=== PATIENT | female | born 1985 | race Caucasian/White ===

== ENCOUNTER 2020-11-14 08:08 | Outpatient (REF) | payer BC, MEDICAID, SELFPAY | END 2020-11-14 08:09 | disposition home or self-care (01) | LOC: HO.LAB 08:08 | PROVIDERS: PCP Internal Medicine; Visit Provider Internal Medicine | DX: Z20.828 Contact with and (suspected) exposure to other viral communicable diseases (principal) | CPT/HCPCS: C9803; U0003 ==

== ENCOUNTER 2023-06-01 13:41 | Outpatient (REF) | payer OTHER, MEDICAID, SELFPAY ==
[2023-06-04 05:34] LABS: HPV mRNA E6/E7 rflx Not Detected (Not Detected)
== END 2023-06-01 13:42 | disposition home or self-care (01) ==
LOC: HO.LNP 13:41
PROVIDERS: PCP Internal Medicine; Visit Provider Obstetrics & Gynecology
DX: Z01.419 Encounter for gynecological examination (general) (routine) without abnormal findings (principal); Z11.51 Encounter for screening for human papillomavirus (HPV)
CPT/HCPCS: 87624; 88142

== ENCOUNTER 2023-06-03 10:25 | Outpatient (REF) | payer OTHER, MEDICAID, SELFPAY ==
--- NOTE | ~2023-06-03 | MM_ITS ---
EXAMINATION: MM SCREENING DIGITAL BREAST TOMOSYNTHESIS, BILATERAL CLINICAL INFORMATION: Screening. Asymptomatic. The lifetime risk of breast cancer based on the Tyrer-Cuzick Model is 22.3.%. COMPARISON: Mammography: Baseline mammography. TECHNIQUE: Digital breast tomosynthesis is performed in both the craniocaudal and mediolateral oblique views along with computer-aided detection (CAD). Synthesized 2D images are generated from the tomosynthesis. FINDINGS: There are scattered areas of fibroglandular density (ACR BI-RADS breast composition Category b). In the upper outer quadrant of the left breast, there is a subtle focal asymmetry which warrants additional mammographic imaging. Sonography may be performed at the discretion of the diagnostic radiologist. In the right breast, there are no significant masses, abnormal calcifications, or other abnormalities. MM/MM tomosynthesis screening BI IMPRESSION: Focal asymmetry of the left breast warrants additional mammographic imaging. Sonography may be performed at the discretion of the diagnostic radiologist. No mammographic signs of malignancy right breast. Given the patient's elevated breast cancer risk score of 22.3%, if MRI has not begun as an adjunct screening method for this patient, it is recommended. ASSESSMENT: BI-RADS BI-RADS 0 - Incomplete: Needs additional Imaging. RECOMMENDATION: 1. Additional views of the left breast 2. Targeted ultrasound if warranted after review of the additional views. 3. Radiology department staff will contact the patient for additional imaging. Additional Imaging required This examination should not preclude the clinical evaluation of a suspicious palpable abnormality. This patient's information was entered into a reminder system with a target due date for their next mammogram.
== END 2023-06-03 10:26 | disposition home or self-care (01) ==
LOC: HO.MAMMO 10:25
PROVIDERS: PCP Internal Medicine; Visit Provider Obstetrics & Gynecology
DX: Z12.31 Encounter for screening mammogram for malignant neoplasm of breast (principal)
CPT/HCPCS: 77063; 77067

== ENCOUNTER → 2023-06-03 10:30 | Outpatient (BNV) | payer OTHER, MEDICAID, SELFPAY | PROVIDERS: PCP Internal Medicine; Visit Provider Radiology Diagnostic Radiology | DX: Z12.31 Encounter for screening mammogram for malignant neoplasm of breast (principal) | CPT/HCPCS: 77063; 77067 ==

== ENCOUNTER 2023-07-15 15:00 | Outpatient (REF) | payer OTHER, MEDICAID, SELFPAY ==
--- NOTE | ~2023-07-15 | US_ITS ---
EXAMINATION: MM DIAGNOSTIC DIGITAL BREAST TOMOSYNTHESIS, LEFT US BREAST LIMITED, LEFT MAMMOGRAPHY: CLINICAL INFORMATION: Follow-up possible area of architectural distortion upper slightly outer left breast seen on screening examination dated 06/03/2023. The lifetime risk of breast cancer based on the Tyrer-Cuzick Model is 22.3%. COMPARISON: Mammography: Baseline mammography 06/03/2023. TECHNIQUE: Digital breast tomosynthesis is performed in both the craniocaudal and mediolateral oblique views along with computer-aided detection (CAD). Synthesized 2D images are generated from the tomosynthesis. FINDINGS: The breasts are heterogeneously dense, which may obscure small masses (ACR BI-RADS breast composition Category c). The suspected small focal asymmetry/subtle area of architectural distortion within the upper slightly outer left breast completely effaces on additional views, and is most consistent with summation artifact of normal overlapping dense fibroglandular tissue. There are no suspicious masses, suspicious grouped calcifications, or persistent areas of architectural distortion. Results were provided to the patient at time of the visit by the technologist. ULTRASOUND: CLINICAL INFORMATION: Evaluate focal asymmetry upper slightly outer left breast, middle one third. COMPARISON: No prior ultrasound. TECHNIQUE: Targeted sonographic evaluation was performed using a high frequency linear transducer. Selected archived documentation. FINDINGS: LEFT BREAST: No suspicious mass is seen. There are no skin changes. There is no pathologic acoustic shadowing. There is no cystic abnormality. Only normal heterogeneously dense fibroglandular tissue is identified. No sonographic correlate. US/US breast LT limited mamm only IMPRESSION: There are no mammographic or sonographic findings suspicious for malignancy. Recommend the patient resume routine annual screening mammography to include both breasts. OVERALL ASSESSMENT: Mammography: BI-RADS 1 - Negative Ultrasound: BI-RADS 1 - Negative RECOMMENDATION: 1 year F/U This patient's information was entered into a reminder system with a target due date for their next mammogram.
== END 2023-07-15 15:01 | disposition home or self-care (01) ==
LOC: HO.MAMMO 15:00
PROVIDERS: PCP Internal Medicine; Visit Provider Internal Medicine
DX: N64.89 Other specified disorders of breast (principal)
CPT/HCPCS: 76642; 77061; 77065

== ENCOUNTER → 2023-07-15 15:00 | Outpatient (BNV) | payer OTHER, MEDICAID, SELFPAY | PROVIDERS: PCP Internal Medicine; Visit Provider Radiology Diagnostic Radiology | DX: R92.2 Inconclusive mammogram (principal) | CPT/HCPCS: 76642; 77061; 77065 ==

== ENCOUNTER 2023-10-07 11:26 | Outpatient (AMB) | payer BC, SELFPAY ==
[2023-10-07 11:27] VITALS: BP 116/74; PULSE 95; O2SAT 99; BMI 25.0
--- NOTE | 2023-10-07 11:27 | MHC.PC.OV ---
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 Home Assessments Required: No Accompanied by: Self / Same As Patient Allergies No Known Allergies Allergy (Verified 10/07/23 11:44) Medication List - Last Reconciled 10/07/23 by Elisa Rhodes MD [id number]-aakulfju 250-250-65 mg (Excedrin Migraine) 1 tab PO Q4-6H PRN Tobacco use date assessed: 10/07/23 Dental Screening Dental Screen Date: 10/07/23 Did you have a dental visit in the last 12 months?: No Did you have a dental problem in the last 6 months where you did not have access to dental care?: No Was dental information given to patient?: Patient has dentist HPI Annual appointment HPI Details 38-year-old female with history of iron deficiency anemia coming in for physical exam. passed out 2 years ago- not eating occ dizzy, pulsating on ear. occ sob. - not go to bathroom QD, states once Q other week PFS Medical History Annual physical exam Surgical History History of carpal tunnel release History of tubal ligation Neck pain with history of cervical spinal surgery History of section Family History Father No problems noted. 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 1. Little interest or pleasure in doing things: not at all 2. Feeling down, depressed, or hopeless: not at all 3. Trouble falling or staying asleep, or sleeping too much: not at all 4. Feeling tired or having little energy: not at all 5. Poor appetite or overeating: not at all 6. Feeling bad about yourself - or that you are a failure or have let yourself or your family down: not at all 7. Trouble concentrating on things, such as reading the newspaper or watching television: not at all 8. Moving or speaking so slowly that other people could have noticed. Or the opposite - being so fidgety or restless that you have been moving around a lot more than usual: not at all 9. Thoughts that you would be better off or of hurting yourself in some way: not at all Total score: 0 Depression Screening Interpretation: Negative Depression Screening Done: Yes 54652 - PHQ-9 Billing: Yes Source: Developed by Drs. Parker Schmitz, Ashleigh Villalta, Micahel House and colleagues, with an educational ismael from [employer]. Thrive Questionnaire I am a: Patient What is your living situation today?: I have a steady place to live Within the past 12 months, did the food you bought not last and you didn't have the money to get more?: Never true Within the past 12 months, did you worry whether your food would run out before you got money to buy more?: Never true Do you have trouble paying for medicines?: No Do you have trouble getting transportation to medical appointments?: No Do you have trouble paying your heating and electricity bill?: No Do you have trouble taking care of your child, family member or friend?: No Do you have trouble with day-to-day activities such as bathing, preparing meals, shopping, managing finances, etc.?: No Are you currently unemployed and looking for a job?: No Are you interested in more education?: No Please select the resources that you would like help with: None Currently or been in a relationship where the following occur: no concerns reported AUDIT C Alcohol Use Questionnaire (AUDIT-C) 1. How often do you have a drink containing alcohol?: Never 3. How often do you have six or more drinks on one occasion?: Never Total Score: 0 SUKHDEV-7 AMB Questionnaire SUKHDEV-7 Date SUKHDEV - 7 assessed: 10/07/23 Feeling nervous, anxious, or on edge: 0 = Not at all Not being able to stop or control worryin = Not at all Worrying too much about different things: 0 = Not at all Trouble relaxin = Not at all Being so restless that it is hard to sit still: 0 = Not at all Becoming easily annoyed or irritable: 0 = Not at all Feeling afraid as if something awful might happen: 0 = Not at all Total SUKHDEV-7 score (0-4 normal; 5-9 mild; 10-14 moderate; 15-21 severe): 0 Source: Developed by Drs. Parker Schmitz, Ashleigh Villalta, Michael House and colleagues, with an educational ismael from [employer]. SUKHDEV-7 Assessment Billing SUKHDEV-7 Assessment Tool: SUKHDEV-7 Assessment 54149 Review of Systems Const Denies poor appetite and Denies weakness Eyes Denies no additional complaints ENT Reports Normal hearing present, Denies dizziness, Denies nasal congestion, Denies tinnitus and Denies sore throat Card Denies chest pain, Denies syncope, Denies rapid heart rate and Denies dyspnea Resp Denies cough and Denies dyspnea GI Denies change in stool character, Reports constipation, Denies diarrhea, Denies nausea and Denies vomiting Denies urinary frequency, Denies difficulty voiding and Denies dysuria Neuro Reports Normal hearing present, Denies confusion, Denies dizziness, Denies syncope and Denies weakness Psych Denies confusion Physical exam (Primary Care) Vital Signs: Last Vital Signs Pulse 95 10/07/23 11:27 BP 116/74 10/07/23 11:27 Pulse Ox 99 10/07/23 11:27 Oxygen Delivery Method Room Air 10/07/23 11:27 BMI result Body Mass Index 25.0 Tobacco/Smoking Status: Tobacco use Status Tobacco use date assessed 10/07/23 10/07/23 11:49 Patient Tobacco Use Status Never used Tobacco 10/07/23 12:02 e-Cigarette/Vaping Use Never Used 10/07/23 12:02 PHQ-9: PHQ-9 Score PHQ-9: Total score 0 10/07/23 11:58 Depression Screening Interpretation: Negative Currently or been in a relationship where the following occur: no concerns reported Const Other: pale palpebral conjuctive General: No confusion Orientation/consciousness: No confusion HENMT Head: Yes normocephalic Ears: external ears normal and TM's normal bilaterally Face and sinus: Yes normal facial exam Mouth: moist mucous membranes Throat: Yes tonsils normal Eyes Conjunctivae: conjunctivae normal Pupils: Equal, round and reactive pupils present and Pupil accommodation reflex normal Direct Ophthalmoscopy: normal light reflex Neck Neck: No lymphadenopathy Thyroid: Thyroid normal Chest Chest palpation & inspection: normal inspection of the chest Resp Effort & Inspection: normal respiratory effort and no audible wheezes Auscultation: clear to auscultation bilaterally, no crackles, no wheezes and lung sounds not diminished Cardio Rate: regular rate Rhythm: regular rhythm Peripheral pulses: radial pulses present and dorsalis pedis present GI Palpation (GI): no masses Auscultation: normal bowel sounds and normoactive bowel sounds Rectal Exam - Female: deferred Back/Spine/Pelvis Back/spine/pelvis image: 1. 3 cm mass noted - black head Skin General skin exam: no rashes or lesions noted Rashes: no rashes Neuro General: No confusion Cranial nerves: Yes Equal, round and reactive pupils present and Yes Normal hearing present Cognition (Neuro): normal cognition Gait exam (Neuro): Normal gait present Motor exam (neuro): 5/5 motor strength present throughout Deep tendon reflexes (DTR's): Right brachioradialis reflex intensity grade: 2+, Left brachioradialis reflex intensity grade: 2+, Right patellar reflex intensity grade: 2+ and Left patellar reflex intensity grade: 2+ Extrem General: No edema Office Procedures Flu Questionnaire Does the patient have a severe egg allergy?: No Does the patient have severe life threatening allergies?: No Does the patient have a fever or illness today?: No Has the patient ever had Guillain-[place] Syndrome?: No Has the patient ever had any past reaction to a flu shot?: No Immunizations flu vacc [id number] 6mos up(PF) 60 mcg(15 mcgx4)/0.5 mL IM syringe Performing Provider: Elisa Rhodes MD 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 0.5 mL IM Left Deltoid 0.5 mL [id number] 05/27/24 [id number] VIS Given Date VIS Provided VIS Publication Date 10/07/23 Single Vaccine 21 Eligibility Eligibility Date Funding Source Not [facility] Eligible 10/07/23 Private Assessment and Plan Assessment & Plan (1) Annual physical exam: Code(s): Z00.00 - Encounter for general adult medical examination without abnormal findings (2) Iron deficiency anemia: Code(s): D50.9 - Iron deficiency anemia, unspecified (3) Open comedone: Code(s): L70.0 - Acne vulgaris Orders: Orders Influenza [id number] Immunization Today Z23 - Encounter for immunization Comprehensive Met. Panel Today D50.9 - Iron deficiency anemia, unspecified Ferritin Today D50.9 - Iron deficiency anemia, unspecified IRON PROFILE Today D50.9 - Iron deficiency anemia, unspecified Vitamin D 25-OH Total Today D50.9 - Iron deficiency anemia, unspecified Lipid Panel Today D50.9 - Iron deficiency anemia, unspecified, E78.00 - Pure hypercholesterolemia, unspecified Reticulocyte Count Today D50.9 - Iron deficiency anemia, unspecified Complete Blood Count Auto Diff Today D50.9 - Iron deficiency anemia, unspecified Thyroid Stimulating Hormone Today D50.9 - Iron deficiency anemia, unspecified Vitamin B12 and Folate Today D50.9 - Iron deficiency anemia, unspecified Free T4 (Free Thyroxine) Today D50.9 - Iron deficiency anemia, unspecified Referrals General Surgery Referral L70.0 - Acne vulgaris Coding Level of Care Code Est Pt Prev Care 40-64y(09216) Diagnoses Annual physical exam Z00.00 Iron deficiency anemia D50.9 Open comedone L70.0 Additional Codes SUKHDEV-7 Assessment Billing - SUKHDEV-7 Assessment Tool: SUKHDEV-7 Assessment 54520 ([id number])
== END 2023-10-07 12:22 | disposition home or self-care (01) ==
PROVIDERS: PCP Internal Medicine; Visit Provider Internal Medicine
DX: Z00.00 Encounter for general adult medical examination without abnormal findings (principal); D50.9 Iron deficiency anemia, unspecified; L70.0 Acne vulgaris; Z23 Encounter for immunization
CPT/HCPCS: 90471; 90686; 99396

== ENCOUNTER 2023-10-08 08:10 | Outpatient (REF) | payer BC, MEDICAID, SELFPAY ==
[2023-10-08 08:58] LABS: Eosinophils Absolute Auto 0.1 X10*3/uL (0.0-0.4); Eosinophils Percent Auto 1.5 % (0-4); Imm Gran Abs Auto 0.01 X10*3/uL (0.00-0.03); Imm Gran Pct Auto 0.2 % (0.0-0.4); Immature Retic Fraction 14.5 % (3.0-15.9); Lymphocytes Absolute Auto 0.8 X10*3/uL (1.2-4.9); Lymphocytes Percent Auto 19.8 % (20-40); MANUAL DIFF FLAG SCAN; Mean Corpuscular HGB Conc 24.4 g/dl (31.0-35.0); Mean Corpuscular Hemoglobin 15.2 pg (27.0-33.0); Mean Platelet Volume 9.9 fL (9.4-12.3); Monocytes Absolute Auto 0.4 X10*3/uL (0.1-1.2); Monocytes Percent Auto 10.4 % (2-11); Neutrophils Absolute Auto 2.8 x10*3/uL (2.0-8.3); Neutrophils Percent Auto 68.1 % (45-73); Platelet Count 205 X10*3/uL (160-400); Red Blood Count 2.89 X10*6/uL (4.20-5.50); Red Cell Distribution Width 18.6 % (11.0-16.0); Retic HGB Equivalent 13.1 pg (30.0-35.0); Reticulocyte Percent 1.3 % (0.5-1.8); Reticulocytes Absolute 0.036 X10*6/uL (0.026-0.095); SCAN SMEAR FLAG 1; White Blood Count 4.1 X10*3/uL (4.8-10.8)
[2023-10-08 09:20] LABS: Alanine Aminotransferase < 5 U/L (0-31); Albumin Level 4.2 g/dL (3.5-5.0); Alkaline Phosphatase 59 U/L (39-117); Anion Gap 10 (12-20); Aspartate Amino Transferase 14 U/L (5-31); Bilirubin Total 0.6 mg/dL (0.0-1.0); Blood Urea Nitrogen 9 mg/dL (9-16); Calcium 9.3 mg/dL (8.4-10.2); Carbon Dioxide 23 mmol/L (22-29); Chloride 109 mmol/L (96-108); Cholesterol 113 mg/dL (<200); Estimated Glomerular Filt Rate > 60; Glucose Random 96 mg/dL (60-115); HDL Cholesterol 46 mg/dL (>40); Iron 11 mcg/dL (30-160); LDL Cholesterol Calculated 62 mg/dL (<100); Percent Iron Saturation 2 % (15-50); Sodium 138 mmol/L (135-145); Total Iron Binding Capacity 449 mcg/dL (228-428); Total Protein 7.5 g/dL (6.5-8.0); Triglycerides 27 mg/dL (<150); Unsaturated Iron Binding 438 ug/dL
[2023-10-08 09:42] LABS: Ferritin < 2 ng/mL (10-250); Free T4 (Free Thyroxine) 0.87 ng/dL (0.71-1.85); Thyroid Stimulating Hormone 0.23 uIU/mL (0.32-4.0); Vitamin D 25-OH Total 18.6 ng/mL (>30)
[2023-10-08 09:54] LABS: Hemoglobin 4.4 g/dl (12.0-16.0); Mean Corpuscular Volume 62.3 fL (80.0-98.0)
[2023-10-08 09:55] LABS: Folate 10.5 ng/mL (> or = 4.0); SLIDE REVIEW VERIFIED; Vitamin B12 288 pg/mL (200-900)
== END 2023-10-08 08:11 | disposition home or self-care (01) ==
LOC: HO.LAB 08:10
PROVIDERS: PCP Internal Medicine; Visit Provider Internal Medicine
DX: E78.00 Pure hypercholesterolemia, unspecified (principal); D50.9 Iron deficiency anemia, unspecified; E55.9 Vitamin D deficiency, unspecified
CPT/HCPCS: 36415; 80053; 80061; 82306; 82607; 82728; 82746; 83540; 84439; 84443; 85025; 85045

== ENCOUNTER 2023-10-08 11:16 | Observation (INO) | payer BC, OTHER, SELFPAY ==
[2023-10-08] VITALS (13 sets, daily range): BP systolic 97–113; BP diastolic 55–63; PULSE 80–112; RESP 14–18; TEMP 36.6–37.5; O2SAT 99–100; BMI 25.0
--- NOTE | 2023-10-08 11:37 | ED_ITS ---
HPI - General Adult General Chief complaint: Recheck/Abnormal Lab/Rx Stated complaint: low iron Time Seen by Provider: 10/08/23 11:53 Source: patient Mode of arrival: ambulatory Limitations: no limitations History of Present Illness HPI narrative: Patient is a 38 year old assigned female at with a history of anemia presenting to the emergency department today with intermittent dizziness and abnormal labs. Patient states that she was seen by her PCP yesterday for this intermittent dizziness upon position change and today he called her to inform her that her blood work had abnormalities. Patient states that she is not taking any iron supplements at this time. Patient denies any vaginal bleeding, vaginal discharge, abdominal pain, nausea, vomiting, fever, chills, blurry vision, double vision, loss of vision, chest pain, difficulty breathing, shortness of breath, back pain, night sweats, pain with urination, increased urinary frequency, increased urinary urgency, blood in her urine or stool, syncope or a near syncopal episode, recent trauma or falls, bowel incontinence, bladder incontinence, bowel retention, bladder retention, or any other complaints at this time. Onset (ago): day(s) Relieving factors: none Exacerbating factors: none Associated symptoms: denies other symptoms Treatments prior to arrival: none Related Data Home Medications Medication Instructions Recorded Confirmed pfvvenh-oeutonizwrevi-ffmknftl 250 2 tab PO DAILY PRN headache 10/07/23 10/08/23 mg-250 mg-65 mg tablet (Excedrin Migraine) Allergies Allergy/AdvReac Type Severity Reaction Status Date / Time No Known Allergies Allergy Verified 10/07/23 11:44 Review of Systems Constitutional: Constitutional: Reports no additional constitutional complaints, Denies chills, Denies fever(s) and Denies night sweats Eyes: Eyes: Reports no additional eye complaints, Denies blurry vision, Denies change in vision, Denies diplopia, Denies eye discharge, Denies loss of vision and Denies eye pain ENT: Reports dizziness (with position changes) Cardiovascular: Cardiovascular: Reports no additional cardiovascular complaints, Denies chest pain, Denies lightheadedness, Denies Loss of Consciousness and Denies dyspnea Respiratory: Respiratory: Reports no additional respiratory complaints and Denies dyspnea Gastrointestinal: Gastrointestinal: Reports no additional gastrointestinal complaints, Denies abdominal pain, Denies melena, Denies hematochezia, Denies change in bowel habits and Denies change in stool character Genitourinary: Genitourinary: Denies hematuria, Denies urinary frequency, Denies dysuria, Denies urinary incontinence, Denies urinary hesitancy and Denies urinary urgency Musculoskeletal: Musculoskeletal: Reports no additional musculoskeletal complaints, Denies numbness and Denies tingling Neurologic: Reports dizziness (with position changes), Denies loss of vision, Denies numbness and Denies tingling Psychiatric: Psychiatric: Reports no additional psychiatric complaints Endocrine: Endocrine: Reports no additional endocrine complaints Hematologic/Lymphatic: Hematologic/Lymphatic: Reports no additional hematologic/lymphatic complaints Allergic/Immunologic: Allergic/Immunologic: Reports no additional allergic/immunologic complaints [facility] Past Medical History Attestation statement: The following information was validated with the patient. Source: old records reviewed and nursing notes reviewed Medical History Annual physical exam Surgical History History of carpal tunnel release History of tubal ligation Neck pain with history of cervical spinal surgery History of section Family History Family History Father No problems noted. 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 Gender identity: Female Cognitive needs: No Hearing needs: No Vision needs: No Physical Exam ED Vital Signs: Vital Signs - 24 hr 10/08/23 11:36 10/08/23 12:10 10/08/23 12:10 Temperature 97.8 F Pulse Rate 98 99 94 Respiratory Rate 16 Blood Pressure 113/62 104/58 L 112/63 Pulse Oximetry 100 Oxygen Delivery Method Room Air 10/08/23 12:11 10/08/23 13:21 10/08/23 13:28 Temperature 99.1 F Pulse Rate 112 H 85 89 Respiratory Rate 18 15 Blood Pressure 111/59 L 103/61 103/58 L Pulse Oximetry 100 Oxygen Delivery Method Room Air BMI result Body Mass Index 25.0 Const General: cooperative, no acute distress, alert and awake Nutritional Appearance: well nourished Orientation/consciousness: patient oriented x3 Limitations: no limitations HENMT Head: Yes normal to inspection and Yes atraumatic Ears: hearing grossly normal bilaterally and external ears normal General nose exam: Normal external nose present, no nasal discharge noted and no epistaxis Face and sinus: Yes normal facial exam, No abrasion and No laceration Mouth: Normal oral and palatal mucosa present, no drooling and no muffled voice Eyes General: appearance normal, both eyes and all related structures Periorbital: periorbital findings normal Eyelids: Yes eyelids normal Conjunctivae: conjunctivae normal Pupils: Equal, round and reactive pupils present EOM: EOMs intact bilaterally Neck Neck: Yes normal visual inspection, Yes full ROM and Yes no lymphadenopathy Chest Chest palpation & inspection: normal inspection of the chest Resp Effort & Inspection: normal respiratory effort and able to speak in complete sentences Auscultation: clear to auscultation bilaterally Cardio Rate: tachycardic Rhythm: regular rhythm GI Inspection: Yes normal to inspection Neuro General: patient oriented x3 and moves all extremities Cranial nerves: Yes Equal, round and reactive pupils present Cognition (Neuro): normal cognition Motor exam (neuro): 5/5 motor strength present throughout Sensory Exam: Normal double simultaneous stimulation for sensation Coordination: [id number]-[id number] test normal Extrem General: Yes normal to inspection, Yes full ROM and Yes capillary refill normal Psych Appearance: grossly normal Mental Status: mental status grossly normal Affect: normal affect Attitude: cooperative Thought process: Normal thought process present Thought content: Normal thought content present Insight: Good insight present (Psych) Course Course Course Narrative: This is a rapid medical exam. Deferred additional HPI, ROS, PE to primary provider. 38 yo female with history of LAURI here with complaints of abnormal labs. Complaints of feeling dizzy. Not on FE supplements. HGB this AM 4.4-see chart. Will obtain T&S, UA, ur preg. VSS Medications Administered Discontinued Medications Generic Name Dose Route Start Last Admin Trade Name Freq PRN Reason Stop Dose Admin Sodium Chloride 100 mls @ 100 mls/hr 10/08/23 12:16 10/08/23 13:26 Ns IV 10/08/23 13:15 100 mls/hr ONCE ONE Administration Medical Decision Making Medical Decision Making [facility] Narrative: Patient is a 38 year old assigned female at with a history of anemia presenting to the emergency department today with abnormal labs and intermittent dizziness. Patient's physical exam was as noted in the physical exam portion of this note. Patient's blood work showed a hemoglobin of 4.4 and HCT of 18. Patient's urine showed no acute process. I spoke to the hospitalist team who agreed to admission. Patient agreed to transfusion of 2 units of PBRCs. I explained my physical exam findings as well as all test results to the patient and the patient's boyfriend. I answered all questions asked by the patient and the patient's boyfriend. Patient and the patient's boyfriend verbalized agreement and understanding with this treatment plan and admission. Differential Diagnosis Differential Diagnoses: The differential diagnosis associated with the presenta tion includes Anemia Admission/Observation Consideration of admission/observation: Escalation of care including admission/observation considered Patient admitted. Consult Healthcare Provider Management of the patient was discussed with: Hospitalist (agreed to admission as noted in the MDM Rationale portion of this note.) Lab Data [facility] Lab Attestation statement: I reviewed the patient's lab results. My interpretation of these results are in the MDM Rationale portion of this note. Labs: Lab Results 10/08/23 10/08/23 Range/Units 11:58 12:05 Urine Color Yellow Urine Appearance Clear Urine pH 6.5 (5.0-9.0) Ur Specific [place] 1.020 (1.005-1.025) Urine Protein Negative (Neg-Trace) mg/dL Urine Glucose (UA) Negative (Negative) mg/dL Urine Ketones Negative (Negative) mg/dL Urine Blood Negative (Negative) Urine Nitrite Negative (Negative) Ur Leukocyte Esterase Negative (Negative) Urine Test NEGATIVE (NEGATIVE) Blood Type O Positive Antibody Screen NEGATIVE Crossmatch See Detail Critical Care Time Critical Care Time Critical Care Time: Yes Total Critical Care Time: 45 Attestation: I spent 45 minutes of Critical Care Time with this patient. This does not include time spent on separately reported billable procedures. Discharge Plan Discharge Clinical Impression: Iron deficiency anemia Patient Disposition: Admitted As Inpatient
[2023-10-08 12:09] LABS: Appearance Urine Clear; Color Urine Yellow; Glucose Urine UA Negative (Negative); Leukocyte Esterase Urine Negative (Negative); Nitrite Urine Negative (Negative); PH 6.5 (5.0-9.0); Urine Blood Negative (Negative); Urine Ketones Negative (Negative); Urine Protein Negative (Neg-Trace)
[2023-10-08 12:12] LABS: UPreg QC Valid YES; Urine Pregnancy NEGATIVE (NEGATIVE)
--- NOTE | 2023-10-08 12:28 | PC.NURSE ---
pt ambulated in following a call back from her DR regarding critically low H&H. pt presents as A&O, pale, reports lethargy and dizziness upon changing positions, intermittent weakness. reports she has previously been informed that she is anemic. denies blood in her urine, stool and other sources of blood output. type and screen completed, 18G placed in pts LAC
--- NOTE | 2023-10-08 13:13 | PM.IMHP ---
History of Present Illness Date of Service: 10/08/23 Chief Complaint: anemia 38F PMH iron deficiency anemia not on supplement, grade 2 internal hemorrhoids presented with anemia. Patient has longstanding history of iron deficiency anemia with baseline hemoglobin around 7-9. Does not take oral iron supplement due to constipation. Generally feels fatigued, denies current worsening symptoms. Had regular outpatient labs which revealed hemoglobin of 4.4 so was sent to the hospital for transfusion. Patient denies any macroscopic bleeding in stool or urine, she denies heavy periods. Review of Systems Review of Systems: Yes all other systems are reviewed and are negative [facility] Medical History Annual physical exam Family History Father No problems noted. Mother Breast cancer Stomach cancer Depression Epilepsy Sister History of total hysterectomy Paternal Grandfather Liver cirrhosis Maternal Aunt Epilepsy Surgical History History of carpal tunnel release History of tubal ligation Neck pain with history of cervical spinal surgery History of section Social History Household Members: Children Housing: House Alcohol intake: current Patient Tobacco Use Status: Never used Tobacco Smoked in Last 30 Days: No e-Cigarette/Vaping Use: Never Used Use of substances other than those prescribed or required for medical reasons: No Advance Directives: No Advance Directives Information Provided: No Patient : No 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 occupational status: employed 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 Gender identity: Female Cognitive needs: No Hearing needs: No Vision needs: No Meds Allergies Allergy/AdvReac Type Severity Reaction Status Date / Time No Known Allergies Allergy Verified 10/07/23 11:44 Active Medications: Current Medications Sodium Chloride (Ns) 100 mls @ 100 mls/hr IV ONCE ONE Stop: 10/08/23 13:15 Sodium Chloride (Ns) 100 mls @ 100 mls/hr IV ONCE ONE Stop: 10/08/23 13:15 Home Medications Medication Instructions Recorded Confirmed Last Taken Type jdymhfa-zzdfhelkhmqfc-ecitbrkh 250 1 tab PO Q4-6H PRN 10/07/23 10/07/23 Unknown History mg-250 mg-65 mg tablet (Excedrin Migraine) Physical Exam Vital Signs and Narrative: Vital Signs: Last Vital Signs Temp 97.8 F 10/08/23 11:36 Pulse 112 H 10/08/23 12:11 Resp 16 10/08/23 11:36 BP 111/59 L 10/08/23 12:11 Pulse Ox 100 10/08/23 11:36 O2 Del Method Room Air 10/08/23 11:36 BMI result Body Mass Index 25.0 General: AO X 3, no acute distress, pallor Resp: CTA bilateral, no accessory muscles used CVS: S1,S2,RRR GI: soft, non tender, non distended Neuro: motor grossly intact, alert Psych: appropriate affect, appropriate insight Results Labs Labs: Laboratory Results - last 24 hr 10/08/23 10/08/23 11:58 12:05 Urine Color Yellow Urine Appearance Clear Urine pH 6.5 Ur Specific [place] 1.020 Urine Protein Negative Urine Glucose (UA) Negative Urine Ketones Negative Urine Blood Negative Urine Nitrite Negative Ur Leukocyte Esterase Negative Urine Test NEGATIVE Blood Type O Positive Antibody Screen NEGATIVE Crossmatch See Detail Assessment and Plan (1) Iron deficiency anemia: Status: Acute Plan 38F PMH iron deficiency anemia not on supplement, grade 2 internal hemorrhoids presented with anemia Chronic iron deficiency anemia - severe Transfuse 2 units PRBC and monitor for appropriate improvement Differential includes chronic blood loss from internal hemorrhoids versus malabsorption Does not tolerate p.o. iron, would recommend outpatient IV iron infusions Full code Quality Stroke Does the patient have a stroke diagnosis?: No VTE Prior VTE?: No VTE Risk Level:: Medical - low VTE Device Contraindication: Treatment Not Indicated VTE Drug Contraindication: Treatment Not Indicated
--- NOTE | 2023-10-08 13:30 | PHA.MEDREC ---
Pharmacy Consult ? Medication Reconciliation Pharmacy has completed the medication reconciliation. spoke with patient and she confirmed that she does not take any medications besides as needed Excedrin.
--- NOTE | 2023-10-08 13:31 | PC.NURSE ---
pt c/o DUNCAN lower leg cramping in calves. reports worse in R than in the L. reports DUNCAN legs are always swollen . no noted warmth, redness to area.
[2023-10-08] MEDS: Acetaminophen 325 MG TABLET 650 MG PO (19:45)
[2023-10-08] MEDS: 0.9 % Sodium Chloride Flush 3 ML SYRINGE IVFLUSH (19:46)
[2023-10-08] MEDS: Butalb/Acetamin/Caff 50/325/40 TABLET 1 TAB PO (21:29)
[2023-10-09] VITALS (8 sets, daily range): BP systolic 94–107; BP diastolic 53–60; PULSE 65–90; RESP 15–18; TEMP 36.3–37.2; O2SAT 98–100
[2023-10-09 05:45] LABS: PLT ABN DIST 1
[2023-10-09 05:46] LABS: Hematocrit 22.7 % (37.0-47.0); Mean Corpuscular HGB Conc 27.3 g/dl (31.0-35.0); Mean Corpuscular Hemoglobin 18.6 pg (27.0-33.0); Mean Corpuscular Volume 68.2 fL (80.0-98.0); Platelet Count 183 X10*3/uL (160-400); Red Blood Count 3.33 X10*6/uL (4.20-5.50); White Blood Count 4.5 X10*3/uL (4.8-10.8)
[2023-10-09 05:50] LABS: Hemoglobin 6.2 g/dl (12.0-16.0)
[2023-10-09 06:08] LABS: Anion Gap 11 (12-20); Blood Urea Nitrogen 9 mg/dL (9-16); Calcium 8.9 mg/dL (8.4-10.2); Carbon Dioxide 20 mmol/L (22-29); Chloride 110 mmol/L (96-108); Estimated Glomerular Filt Rate > 60; Glucose Fasting 90 mg/dL (60-99); Potassium 3.8 mmol/L (3.3-5.1); Sodium 137 mmol/L (135-145)
[2023-10-09] MEDS: 0.9 % Sodium Chloride Flush 3 ML SYRINGE IVFLUSH (08:26)
--- NOTE | 2023-10-09 09:24 | PM.DS ---
DS: Providers Provider Date of Service: 10/09/23 Date of admission: 10/08/23 13:32 Primary care physician: Elisa Rhodes MD DS: Diagnosis Discharge Diagnosis (1) Iron deficiency anemia: Status: Acute DS: Summary Hospital Course Hospital Course: from initial hpi: 38F PMH iron deficiency anemia not on supplement, grade 2 internal hemorrhoids presented with anemia. Patient has longstanding history of iron deficiency anemia with baseline hemoglobin around 7-9. Does not take oral iron supplement due to constipation. Generally feels fatigued, denies current worsening symptoms. Had regular outpatient labs which revealed hemoglobin of 4.4 so was sent to the hospital for transfusion. Patient denies any macroscopic bleeding in stool or urine, she denies heavy periods. hospital course: Patient was admitted for severe chronic iron deficiency anemia. She was transfused 3 units total PRBC. Hemoglobin improved appropriately. Patient's symptoms improved. Patient did not tolerate p.o. iron, therefore, should follow up outpatient to arrange routine iron infusions. She should also follow up with GI to continue workup for etiology, chronic blood loss versus malabsorption. Time Attestation Discharge coordination time: Greater than 30 minutes Quality: Safe Use of Opioids Does Pt have an Active Cancer Diagnosis on the Problem List?: No Quality: Stroke Does the patient have a stroke diagnosis?: No Physical Exam Vital Signs: Vital Signs: Last Vital Signs Temp 98.7 F 10/09/23 08:49 Pulse 77 10/09/23 08:49 Resp 18 10/09/23 08:49 BP 102/57 L 10/09/23 08:49 Pulse Ox 98 10/09/23 07:38 O2 Del Method Room Air 10/09/23 07:38 BMI result Body Mass Index 25.0 General: AO X 3, no acute distress Resp: CTA bilateral, no accessory muscles used CVS: S1,S2,RRR GI: soft, non tender, non distended Neuro: motor grossly intact, alert Psych: appropriate affect, appropriate insight DS: Data Data Completed and Pending Labs on day of discharge: Laboratory Results - last 24 hr 10/08/23 10/08/23 10/09/23 11:58 12:05 05:15 WBC 4.5 L RBC 3.33 L Hgb 6.2 L* D Hct 22.7 L D MCV 68.2 L D MCH 18.6 L MCHC 27.3 L RDW 24.0 H Plt Count 183 MPV 10.0 Absolute Nucleated RBC 0.000 Nucleated RBC % (auto) 0.0 Sodium 137 Potassium 3.8 Chloride 110 H Carbon Dioxide 20 L Anion Gap 11 L BUN 9 Creatinine 0.58 Estim Creat Clear Calc 116.0 Estimated GFR > 60 Fasting Glucose 90 Calcium 8.9 Urine Color Yellow Urine Appearance Clear Urine pH 6.5 Ur Specific [place] 1.020 Urine Protein Negative Urine Glucose (UA) Negative Urine Ketones Negative Urine Blood Negative Urine Nitrite Negative Ur Leukocyte Esterase Negative Urine Test NEGATIVE Blood Type O Positive Antibody Screen NEGATIVE Crossmatch See Detail Discharge Plan Discharge Anticipated Discharge Date/Time: 10/09/23 09:22 Patient Disposition: Home, Self-Care Discharge Diagnosis: iron deficiency anemia Referrals: Christi Pierce MD [Physician] - 1 Week (iron anemia) Po,Elisa Richardson MD [Primary Care Provider] - 1 Week Discharge Medications: Continued Excedrin Migraine 250-250-65 mg tablet 2 tab PO DAILY PRN (Reason: headache ) Discharge Orders: Discharge Order (Routine); Ordered 10/09/23 Ordered By: Lizandro Hawthorne Diet: Advance to usual diet Activity on Discharge: As tolerated Stand Alone Forms: Patient Portal Discharge page Care Plan Goals: manage anemia Health Concerns: iron deficiency anemia Plan of Treatment: arrange for routine iron infusions, follow up with gi for further work up of anemia, ?slow bleeding vs malabsorption Assessment: see above
--- NOTE | 2023-10-09 09:31 | MHC.CM.PN ---
MD order for home, self-care prior to CM interview. CM acknowledge.
[2023-10-09] MEDS: Butalb/Acetamin/Caff 50/325/40 TABLET 1 TAB PO (09:55)
[2023-10-09] MEDS: Acetaminophen 325 MG TABLET 650 MG PO (11:05)
== END 2023-10-09 12:40 | disposition home or self-care (01) ==
LOC: HO.ED 12:30 → HO.EDOVER 13:33 → HO.IMC 13:56
PROVIDERS: Nurse Practitioner Family; Admitting Provider Internal Medicine; Emergency Provider Emergency Medicine Emergency Medical Services; PCP Internal Medicine; Visit Provider Internal Medicine
DX: D50.9 Iron deficiency anemia, unspecified (principal); R42 Dizziness and giddiness; K64.1 Second degree hemorrhoids
CPT/HCPCS: 36415; 36430; 80048; 81003; 81025; 85027; 86850; 86900; 86901; 86923; 96360; 96361; 99222; 99285; P9016

== ENCOUNTER → 2023-10-08 12:29 | Outpatient (BNV) | payer BC, MEDICAID, SELFPAY | PROVIDERS: Emergency Provider Emergency Medicine Emergency Medical Services; PCP Internal Medicine; Visit Provider Internal Medicine | DX: D50.9 Iron deficiency anemia, unspecified (principal) | CPT/HCPCS: 99222; 99239 ==

== ENCOUNTER → 2023-10-10 11:41 | Outpatient (BNV) | payer BC, OTHER, SELFPAY | PROVIDERS: PCP Internal Medicine; Visit Provider Internal Medicine | DX: D50.9 Iron deficiency anemia, unspecified (principal) | CPT/HCPCS: 99204; 99213 ==

== ENCOUNTER 2023-10-18 14:43 | Outpatient (REF) | payer BC, OTHER, SELFPAY | END 2023-10-18 14:44 | disposition home or self-care (01) | LOC: HO.LNP 14:43 | PROVIDERS: PCP Internal Medicine; Visit Provider Surgery | DX: L70.0 Acne vulgaris (principal); L72.3 Sebaceous cyst | CPT/HCPCS: 11402; 88304 ==

== ENCOUNTER 2023-10-18 14:43 | Outpatient (AMB) | payer BC, SELFPAY ==
--- NOTE | 2023-10-18 14:50 | A.OFFVIS_ITS ---
Intake Vital Signs 10/18/23 14:53 Height 5 ft 3 in Weight 141 lb BMI 25.0 BP 116/58 L Blood Pressure Location Rt brachial Position Sitting Pulse 65 Intake Visit Reasons: Cyst/ Mid back Intake Note: Patient referred by PCP Dr. Rhodes for cyst on mid back. Has been present for yrs. Denies pain or discomfort. Cyst has been enlarging. Patient had friend try to pop it but never completely went away. 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 It is increasing in size, becoming more symptomatic. She was to have it excised. She has no such lesions elsewhere. Chart was reviewed patient evaluated [facility] Medical History Annual physical exam Surgical History History of carpal tunnel release History of tubal ligation Neck pain with history of cervical spinal surgery History of section Family History Father No problems noted. 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 Office Procedures Excision Details: Risks, benefits, alternatives of excision of mid back sebaceous cyst reviewed the patient included but not limited to bleeding, infection, recurrence, numbness, pain, scarring, seroma formation, wound dehiscence and the patient was to proceed. All questions were answered. Consent was side. After appropriate positioning, patient underwent 1% lidocaine and Betadine prep to the mid back sebaceous cyst. A transverse bi- elliptical incision was made around the lesion in question which measured approximately 3 x 2 6 cm. Specimen sent to pathology. Wound was irrigated, secured hemostasis, and closed using running subcuticular 3 -0 Vicryl suture followed by Steri-Strips and sterile dressings. Patient tolerated procedure well. 07635-ovsdb/arms/legs 2.1-3cm Procedure code (CPT) selection complete Office Meds lidocaine 1 %-epinephrine 1:100,000 injection solution Performing Provider: Joao Monterroso MD Performing Location: [facility] – [place] [facility] Administered by: Joao Monterroso MD on 10/18/23 15:16 Dose Route Admin Location Dispensed Lot Number Expiration Date [facility] [employer] Technical Director 10 mL Infiltration 10 mL Assessment & Plan Assessment & Plan (1) Sebaceous cyst: Code(s): L72.3 - Sebaceous cyst Plan: Patient has been given local instructions including avoiding strenuous activities next few weeks time, may shower in 2 days, ice pack p.r.n., Tylenol p.r.n. and she will see me as directed or p.r.n. Orders: Orders AMB Excision Today L72.3 - Sebaceous cyst Coding Level of Care Code New Pt Level 5 (94902) Diagnoses Sebaceous cyst L72.3 CPT Codes Trunk/Arms/Legs - CPT: 31101-hwszl/arms/legs 2.1-3cm ([id number])
[2023-10-18 14:53] VITALS: BP 116/58; PULSE 65; BMI 25.0
== END 2023-10-18 15:16 | disposition home or self-care (01) ==
PROVIDERS: PCP Internal Medicine; Visit Provider Surgery
DX: L72.0 Epidermal cyst (principal)
CPT/HCPCS: 11402; 99204

== ENCOUNTER 2023-10-19 09:11 | Outpatient (REF) | payer BC, OTHER, SELFPAY | END 2023-10-19 09:12 | disposition home or self-care (01) | LOC: HO.MDS 09:11 | PROVIDERS: Visit Provider Internal Medicine | DX: D50.8 Other iron deficiency anemias (principal) | CPT/HCPCS: 96365; 96366; J1200; J1720; J1750 ==

== ENCOUNTER 2023-10-25 15:21 | Outpatient (AMB) | payer BC, OTHER, SELFPAY ==
--- NOTE | 2023-10-25 15:22 | MHC.OFFVIS ---
Intake Vital Signs 10/25/23 15:25 Height 5 ft 3 in Weight 141 lb 0.017 oz BMI 25.0 Intake Visit Reasons: Cyst/ Mid back Intake Note: Patient here s/p cyst exc on Mid upper back. Reports incision site healing well. Denies oozing, pain, itch. Rate Clerk Passenger Required: No Accompanied by: Self / Same As Patient Allergies No Known Allergies Allergy (Verified 10/25/23 15:26) HPI HPI Comments History of Present Illness Details Patient presents for follow-up. She has no wound issues or complaints. Pathology is benign. [facility] Medical History Annual physical exam Surgical History History of carpal tunnel release History of tubal ligation Neck pain with history of cervical spinal surgery History of section Family History Father No problems noted. 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 Clean dry and intact. Assessment & Plan Assessment & Plan (1) Sebaceous cyst: Code(s): L72.3 - Sebaceous cyst Plan Patient has been given local instructions, including avoiding strenuous activities for next 2 weeks time and will follow-up p.r.n. Coding Level of Care Code Global (35289) Diagnoses Sebaceous cyst L72.3
[2023-10-25 15:25] VITALS: BMI 25.0
== END 2023-10-25 15:30 | disposition home or self-care (01) ==
PROVIDERS: PCP Internal Medicine; Visit Provider Surgery
DX: L72.3 Sebaceous cyst (principal)
CPT/HCPCS: 99024

== ENCOUNTER → 2023-10-25 15:21 | Outpatient (BNVA) | payer BC, OTHER, SELFPAY | PROVIDERS: PCP Internal Medicine; Visit Provider Surgery ==

== ENCOUNTER 2023-10-31 19:49 | Emergency (ER) | payer BC, OTHER, SELFPAY ==
--- NOTE | 2023-10-31 20:19 | ED_ITS ---
HPI - General Adult General Chief complaint: Skin/Abscess/Foreign Body Stated complaint: pilondal cyst Time Seen by Provider: 11/01/23 00:05 Source: patient Mode of arrival: ambulatory Limitations: no limitations History of Present Illness HPI narrative: Patient is a 38-year-old female who presents emergency department for evaluation of concern for abscess to the right buttock. She reports onset 3 days ago incre asing in size. Yesterday she noticed it began bleeding and having pus-like drainage. The area continues to be significantly painful with small amounts of drainage. She reports a history of a similar cyst on her back which was recently removed. Denies fevers, chills. Related Data Home Medications Medication Instructions Recorded Confirmed rfknfzp-frvjbhjnreohu-xrongddc 250 2 tab PO DAILY PRN headache 10/07/23 10/10/23 mg-250 mg-65 mg tablet (Excedrin Migraine) Previous Rx's Medication Instructions Recorded mecobalamin (vitamin B12) 1,000 1,000 mcg PO DAILY #60 tabs 10/10/23 mcg chewable tablet (B12 Active) cephalexin 500 mg capsule 500 mg PO TID 7 days #21 caps 11/01/23 ketorolac 10 mg tablet 10 mg PO Q6H PRN pain 5 days #15 11/01/23 tabs oxycodone 5 mg tablet 5 mg PO Q6H PRN pain #10 tabs 11/01/23 Allergies Allergy/AdvReac Type Severity Reaction Status Date / Time No Known Allergies Allergy Verified 10/25/23 15:26 Review of Systems Review of Systems: Yes all other systems are reviewed and are negative PMFSH Past Medical History Attestation statement: The following information was validated with the patient. Source: old records reviewed Medical History Annual physical exam Surgical History History of carpal tunnel release History of tubal ligation Neck pain with history of cervical spinal surgery History of section Family History Family History Father No problems noted. 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 No acute distress.?Normal affect. Eyes: Pupils equal, round and reactive to light.? ENT: Pharynx normal.?? Neck: Normal inspection.? Neck supple.?? CVS: Heart sounds normal. Normal heart rate and rhythm.? Pulses normal.?? Respiratory: No respiratory distress.? Lung sounds clear to auscultation bilate rally?? Abdomen: Soft and non-tender. Normoactive bowel sounds. Skin: Skin warm and dry.? Normal skin color.? Right gluteal ulceration approximately 1 cm, granulation tissue and small amount of purulence noted at the base with mild surrounding erythema. No palpable induration or fluctuance. Extremities: No lower extremity edema.? Neuro: Moves all extremities spontaneously. Sensation intact bilaterally.Ambulates with normal steady gait. Course Course Course Narrative: RME performed by Samreen Mayberry PA-C. Patient is a 38 year old assigned female at presenting to the emergency department with a possible pilonidal abscess. Patient placed back in the waiting room pending room availability and results. Medical Decision Making Medical Decision Making MDM Narrative: Patient is a 2-year-old female who presents emergency department for evaluation of skin concern to the buttocks. Based on her reported history of a palpable lump in acute drainage and current appearance I suspect that the ulceration currently present is due to an opened abscess. I discussed rinsing of her, pain management, and course of antibiotics for surrounding cellulitis. Reviewed worrisome signs and symptoms that would warrant re-evaluation emergency department. Outpatient follow-up with primary care provider. All questions answered. Differential Diagnosis Differential Diagnoses: The differential diagnosis associated with the presentation includes (Cellulitis, abscess. Examination not consistent with necrotizing infection, myositis, rectal abscess) External Record Review External record reviewed: Outpatient record Prescription Management I considered prescription management with: Pain Medication and Antibiotic Discharge Plan Discharge Clinical Impression: Abscess Patient Disposition: Home, Self-Care Instructions: Abscess (ED), Sitz Bath (DC) Additional Instructions: Do not take additional xplz-uew-njrpkle or ibuprofen/aspirin/Motrin/Advil/Aleve/naproxen while taking ketorolac I have sent a prescription for oxycodone to your pharmacy. This is a narcotic medication. It may make you drowsy. He can be addictive. You should not drive, drink alcohol, or work while taking this medication. Take this for pain uncontrolled by ketorolac. Follow-up with your primary care provider Return back to emergency department any new or worsening symptoms or concerns. Prescriptions: New ketorolac 10 mg tablet 10 mg PO Q6H PRN (Reason: pain) 5 Days Qty: 15 0RF oxycodone 5 mg tablet 5 mg PO Q6H PRN (Reason: pain) Qty: 10 0RF Rx Instructions: Partial Fill upon patient request. cephalexin 500 mg capsule 500 mg PO TID 7 Days Qty: 21 0RF No Action mecobalamin (vitamin B12) [B12 Active] 1,000 mcg Tablet,Chewable 1,000 mcg PO DAILY Qty: 60 3RF Excedrin Migraine 250-250-65 mg tablet 2 tab PO DAILY PRN (Reason: headache )
[2023-10-31 20:21] VITALS: BP 125/64; PULSE 88; RESP 16; TEMP 36.3; O2SAT 98; BMI 26.0
[2023-10-31 22:17] VITALS: BP 99/66; PULSE 76; RESP 18; TEMP 36.7; O2SAT 99
[2023-11-01] MEDS: Ketorolac Tromethamine 60 MG/2 ML VIAL IM (00:36)
[2023-11-01 01:00] VITALS: BP 123/68; PULSE 68; RESP 18; O2SAT 99
== END 2023-11-01 01:10 | disposition home or self-care (01) ==
PROVIDERS: Emergency Provider Student in an Organized Health Care Education/Training Program; PCP Internal Medicine
DX: L05.01 Pilonidal cyst with abscess (principal); Z79.899 Other long term (current) drug therapy
CPT/HCPCS: 96372; 99284; J1885

== ENCOUNTER 2024-01-09 10:30 | Outpatient (REF) | payer OTHER, SELFPAY ==
[2024-01-09 13:28] LABS: Thyroid Stimulating Hormone 0.47 uIU/mL (0.32-4.0)
[2024-01-10 21:54] LABS: Transglutaminase IgA 5.8 U/mL
[2024-01-12 11:38] LABS: Endomysial IgA Antibody Negative (Negative)
== END 2024-01-09 10:31 | disposition home or self-care (01) ==
LOC: HO.LAB 10:30
PROVIDERS: PCP Internal Medicine; Visit Provider Physician Assistant
DX: D50.9 Iron deficiency anemia, unspecified (principal)
CPT/HCPCS: 36415; 84443; 86231; 86364

== ENCOUNTER 2024-01-09 10:30 | Outpatient (AMB) | payer OTHER, SELFPAY ==
[2024-01-09 10:31] VITALS: BP 105/56; PULSE 76; BMI 27.2
--- NOTE | 2024-01-09 10:31 | A.OFFVIS_ITS ---
Intake Vital Signs 01/09/24 10:31 Height 5 ft 3 in Weight 153 lb 7.068 oz BMI 27.2 BP 105/56 L Blood Pressure Location Lt brachial Position Sitting Pulse 76 Intake Visit Reasons: Anemia Intake Note: pt its here for a f/up ojn Anemia, pt have no GI symptoms at this moment. Screwmaker Automatic Required: No Accompanied by: Daughter Allergies No Known Allergies Allergy (Verified 01/27/24 15:52) HPI HPI Comments History of Present Illness Details A 39 y/o female refeferred with anemia- seen recently j carlos- has heavy menses- past 2 months-only- typically normal She had blood transfusion- now taking supplement EGD/ colon- Dr. Pierce- 2019- normal bx- Referred back by j carlos- She is somewhat frustrated, certainly understands She has had no nausea vomiting , abdominal fever chills PFSH Medical History Annual physical exam Surgical History History of carpal tunnel release History of tubal ligation Neck pain with history of cervical spinal surgery History of section Family History Father No problems noted. 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 Gender identity: Female Cognitive needs: No Hearing needs: No Vision needs: No Female Reproductive History Menstrual Age of Menarche: 8 Review of Systems Const All systems reviewed & are unremarkable except as noted in HPI and below Denies chills, Denies fatigue, Denies fever(s), Denies frequent falls, Denies weakness, Denies weight gain and Denies weight loss ENT Denies dizziness Card Denies chest pain, Denies leg edema, Denies lightheadedness, Denies palpitations, Denies dyspnea and Denies dyspnea on exertion Resp Denies cough, Denies dyspnea and Denies dyspnea on exertion GI Denies hematochezia Reports abnormal menses Musc Denies abnormal gait, Denies muscle weakness, Denies numbness, Denies radiating pain into limb and Denies tingling Neuro Denies abnormal gait, Denies dizziness, Denies frequent falls, Denies numbness, Denies tingling and Denies weakness Endo Denies fatigue and Denies palpitations Physical Exam Vital Signs: Last Vital Signs Pulse 76 01/09/24 10:31 BP 105/56 L 01/09/24 10:31 BMI result Body Mass Index 27.2 Const General: cooperative, healthy appearing, comfortable and no acute distress Orientation/consciousness: patient oriented x3 Limitations: no limitations Neuro General: patient oriented x3 Psych Appearance: grossly normal and well kempt Mental Status: mental status grossly normal Speech and movement: Normal speech and movement present Affect: normal affect Attitude: cooperative Thought process: Normal thought process present Thought content: Normal thought content present Insight: Good insight present (Psych) Judgement: Good judgement present (Psych) Results Reviewed Results Reviewed: Dr. Mar-11/2023 Assessment and plan: 1. This is a 38-year-old woman with acute worsening of chronic iron deficiency anemia. Hemoglobin was 4.4 gram/dL on 10/20. She was admitted and received 3 units PRBC. History is not suggestive of acute gastrointestinal blood losses. Occult GI blood losses or malabsorption is a possibility although she denies any symptoms of malabsorption. She was advised to follow-up with GI as well. She was never able to tolerate oral iron, this was her 1st time with blood transfusion. She received iron dextran therapy in October 2023. Anemia has improved. I have asked her to take at least [id number] iron supplementation since her menstrual cycles have been heavy lately. She was advised to call sooner if she develops any worsening symptoms. Follow-up in 6 months. Assessment & Plan Assessment & Plan (1) Iron deficiency anemia: Comment: however EGD colo typically needs to be done with in 1 year-will check with MD for advisement-if insurance will approve may go forward RN reviewed with insurance company for authorization patient does not need to repeat EGD and colonoscopy at this time. We will go straight to capsule endoscopy. Patient was notified Code(s): D50.9 - Iron deficiency anemia, unspecified Plan: EGD colonoscopy ??CUE-sent to RN she is contacting insurance,-they do not require repeat EGD colon-I will await until she is notified with appointment for capsule before cancelling scheduled colonoscopy Plan Awaiting insurance authorization Orders: Orders Transglutaminase IgA 01/09/24. - Iron deficiency anemia, unspecified Endomysial IgA rflx Titer 01/09/24. - Iron deficiency anemia, unspecified Thyroid Stimulating Hormone 01/09/240.9 - Iron deficiency anemia, unspecified EGD/[place] Combo - GI Use Only 01/09/24. - Iron deficiency anemia, unspecified Medications: New bisacodyl (Dulcolax (bisacodyl)) Day before procedure @ 12 noon Take 4 tablets by mouth followed by large glass of water 20 mg (4 x 5 mg) PO ONCE PRN 4 tabs 0RF colonoscopy prep 1 day Z12.11 - Encounter for screening for malignant neoplasm of colon polyethylene glycol 3350 (Miralax) Take as directed by mouth the day before your procedure. 238 grams PO ONCE PRN 238 grams 0RF laxative effect 1 day Patient Instructions: See above note will check with RN/insurance company and notify patient of plan Coding Level of Care Code New Pt Level 4 (66182) Diagnoses Iron deficiency anemia D50.9 Time Spent (min) 30
== END 2024-01-09 11:34 | disposition home or self-care (01) ==
PROVIDERS: PCP Internal Medicine; Visit Provider Physician Assistant
DX: D50.9 Iron deficiency anemia, unspecified (principal)
CPT/HCPCS: 99204

== ENCOUNTER 2024-01-27 15:43 | Outpatient (AMB) | payer OTHER, SELFPAY ==
[2024-01-27 15:51] VITALS: BP 108/76; PULSE 74; O2SAT 100; BMI 27.1
--- NOTE | 2024-01-27 15:51 | A.OFFPC_ITS ---
Vital Signs 01/27/24 15:51 Height 5 ft 3 in Weight 153 lb BMI 27.1 BP 108/76 Blood Pressure Location Lt brachial Position Sitting Pulse 74 Pulse Source Pulse Oximeter Temp Source Skin Pulse Oximetry (%) 100 Oxygen Delivery Method Room Air Intake Visit Reasons: 3 month f/u Intake Note: Patient is here to follow up on 3 months Pantograph Ii Engraver Required: No Allergies No Known Allergies Allergy (Verified 01/27/24 15:52) Medication List - Last Reconciled 01/27/24 by Elisa Rhodes MD ascorbate calcium (vitamin C) 500 mg PO DAILY [id number]-[id number] 250-250-65 mg (Excedrin Migraine) 2 tabs PO DAILY PRN bisacodyl (Dulcolax (bisacodyl)) 20 mg (4 x 5 mg) PO ONCE PRN 1 day ferrous sulfate ER (Slow Fe) 137 mg PO .QD 30 days mecobalamin (vitamin B12) (B12 Active) 1,000 mcg PO DAILY polyethylene glycol 3350 (Miralax) 238 grams PO ONCE PRN 1 day Tobacco use date assessed: 01/27/24 Dental Screening Dental Screen Date: 01/27/24 Did you have a dental visit in the last 12 months?: Yes Did you have a dental problem in the last 6 months where you did not have access to dental care?: No Was dental information given to patient?: Patient has dentist HPI 3 month f/u HPI Details 39-year-old overweight female with a his tory of iron deficiency anemia coming in for follow-up last seen in September 2023. Patient's mammogram and Pap smears are up-to-date. Patient has been sent to Gastroenterology because of the anemia has had blood transfusion before. Has had colon test as well as EGD in 2018 patient has had 3 units of packed RBC transfused she received iron dextran October 2023. She has not tolerated oral iron patient did follow-up with the senior telecommunications engineer in November 2023 noted to have heavy menstruation ER visit also in October 2023 having a abscess in the back.. And has had excision September 2023 [facility] Medical History Annual physical exam Surgical History History of carpal tunnel release History of tubal ligation Neck pain with history of cervical spinal surgery History of section Family History Father No problems noted. 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 1. Little interest or pleasure in doing things: not at all 2. Feeling down, depressed, or hopeless: not at all 3. Trouble falling or staying asleep, or sleeping too much: not at all 4. Feeling tired or having little energy: not at all 5. Poor appetite or overeating: not at all 6. Feeling bad about yourself - or that you are a failure or have let yourself or your family down: not at all 7. Trouble concentrating on things, such as reading the newspaper or watching television: not at all 8. Moving or speaking so slowly that other people could have noticed. Or the opp osite - being so fidgety or restless that you have been moving around a lot more than usual: not at all 9. Thoughts that you would be better off or of hurting yourself in some way: not at all Total score: 0 Depression Screening Interpretation: Negative Depression Screening Done: Yes 24096 - PHQ-9 Billing: Yes Source: Developed by Drs. Parker Schmitz, Ashleigh Villalta, Michael House and colleagues, with an educational ismael from [employer] Thrive Questionnaire Date Thrive assessed: 01/27/24 I am a: Patient What is your living situation today?: I have a steady place to live Within the past 12 months, did the food you bought not last and you didn't have the money to get more?: Never true Within the past 12 months, did you worry whether your food would run out before you got money to buy more?: Never true Do you have trouble paying for medicines?: No Do you have trouble getting transportation to medical appointments?: No Do you have trouble paying your heating and electricity bill?: No Do you have trouble taking care of your child, family member or friend?: No Do you have trouble with day-to-day activities such as bathing, preparing meals, shopping, managing finances, etc.?: No Are you currently unemployed and looking for a job?: No Are you interested in more education?: No Please select the resources that you would like help with: None THRIVE Score: 0 AUDIT C Alcohol Use Questionnaire (AUDIT-C) 1. How often do you have a drink containing alcohol?: Never 3. How often do you have six or more drinks on one occasion?: Never Total Score: 0 SUKHDEV-7 AMB Questionnaire SUKHDEV-7 Date SUKHDEV - 7 assessed: 01/27/24 Source: Developed by Drs. Parker Schmitz, Ashleigh Villalta, Michael House and colleagues, with an educational ismael from [employer] Physical exam (Primary Care) Vital Signs: Last Vital Signs Pulse 74 01/27/24 15:51 BP 108/76 01/27/24 15:51 Pulse Ox 100 01/27/24 15:51 Oxygen Delivery Method Room Air 01/27/24 15:51 BMI result Body Mass Index 27.1 Tobacco/Smoking Status: Tobacco use Status Tobacco use date assessed 01/27/24 01/27/24 15:52 Patient Tobacco Use Status Never used Tobacco 01/27/24 15:52 e-Cigarette/Vaping Use Never Used 01/27/24 15:52 PHQ-9: PHQ-9 Score PHQ-9: Total score 0 01/27/24 15:59 Depression Screening Interpretation: Negative Thrive Assessment: Date of Thrive Assessment Date Thrive assessed 01/27/24 01/27/24 15:52 Const General: alert; No acute distress Eyes Conjunctivae: conjunctivae normal Resp Auscultation: clear to auscultation bilaterally Cardio Rate: regular rate Rhythm: regular rhythm GI Inspection: Yes normal to inspection Extrem General: Yes normal to inspection and No edema Assessment and Plan Assessment & Plan (1) Iron deficiency anemia: Comment: however EGD colo typically needs to be done with in 1 year-will check with MD for advisement-if insurance will approve may go forward Code(s): D50.9 - Iron deficiency anemia, unspecified Plan: Patient has been being seen by hematology has had 4 units of blood transfusion iron dextran given and now (2) Menorrhagia: Code(s): N92.0 - Excessive and frequent menstruation with regular cycle Plan: Patient advised to follow-up with gynecology Medications: New ferrous sulfate ER (Slow Fe) 137 mg PO .QD 30 days 30 tabs 5RF D50.9 - Iron deficiency anemia, unspecified ascorbate calcium (vitamin C) 500 mg PO DAILY 30 tabs 4RF D50.9 - Iron deficien cy anemia, unspecified cholecalciferol (vitamin D3) 50 mcg PO DAILY 90 caps 3RF 90 days D50.9 - Iron deficiency anemia, unspecified, E55.9 - Vitamin D deficiency, unspecified Coding Level of Care Code Est Pt Level 4 (65463) Diagnoses Iron deficiency anemia D50.9 Menorrhagia N92.0
== END 2024-01-27 16:53 | disposition home or self-care (01) ==
PROVIDERS: PCP Internal Medicine; Visit Provider Internal Medicine
DX: D50.9 Iron deficiency anemia, unspecified (principal); N92.0 Excessive and frequent menstruation with regular cycle
CPT/HCPCS: 99214

== ENCOUNTER 2024-05-16 15:00 | Outpatient (REF) | payer OTHER, SELFPAY | END 2024-05-16 15:01 | disposition home or self-care (01) | LOC: HO.LNP 15:00 | PROVIDERS: PCP Internal Medicine; Visit Provider Obstetrics & Gynecology | DX: N93.9 Abnormal uterine and vaginal bleeding, unspecified (principal); Z91.89 Other specified personal risk factors, not elsewhere classified | CPT/HCPCS: 58100; 81025; 88305 ==

== ENCOUNTER 2024-05-16 15:00 | Outpatient (AMB) | payer OTHER, SELFPAY ==
--- NOTE | 2024-05-16 15:08 | MHC.OFFVIS ---
Vital Signs 05/16/24 15:10 Height 5 ft 3 in Weight 152 lb 1.903 oz BMI 26.9 Intake Visit Reasons: Bleeding between periods Railroad Cook Required: No Information Interpreted: non-clinical & clinical Freight Broker Agent: Freight Broker Agent Present (Yuli Benton ZULMA) Accompanied by: Self / Same As Patient Allergies No Known Allergies Allergy (Verified 05/16/24 15:11) HPI Comments Details: Presenting complaining of heavy menstrual cycle associated with passage of blood clots and pelvic cramping last few days. Patient gives history of severe anemia status post blood transfusion in September of 2023 Last mammogram was BI-RADS 1 in 07/20, TC model lifetime breast cancer risk 22.3% . The patient is scheduled for screening mammogram in few weeks. Last co testing in 06/19 was negative [facility] Medical History Annual physical exam Surgical History History of carpal tunnel release History of tubal ligation Neck pain with history of cervical spinal surgery History of section Family History Father No problems noted. 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 Gender identity: Female Cognitive needs: No Hearing needs: No Vision needs: No Female Reproductive History Menstrual Age of Menarche: 8 Review of Systems Const All systems reviewed & are unremarkable except as noted in HPI and below Card Reports as per HPI Resp Reports as per HPI GI Reports as per HPI and Reports no additional complaints Reports as per HPI Physical Exam Vital Signs: BMI result Body Mass Index 26.9 Const General: cooperative, healthy appearing and comfortable Chest Chest palpation & inspection: normal inspection of the chest and normal palpation of entire chest wall Breast/axilla inspection: normal inspection of the breasts and normal inspection of the axillae Breast/axilla palpation: normal palpation of the breasts, normal palpation of the axillae and no axillary lymphadenopathy Resp Effort & Inspection: normal respiratory effort Auscultation: clear to auscultation bilaterally Percussion: percussion normal Cardio Palpation: normal PMI Rate: regular rate Rhythm: regular rhythm Heart sounds: no murmurs and no rubs Peripheral pulses: Peripheral pulses 2+ throughout GI Inspection: Yes normal to inspection Palpation (GI): Soft to palpation, nontender, no guarding, not rigid and No hepatosplenomegaly present Percussion: Yes normal to percussion Auscultation: normal bowel sounds Rectal Exam - Female: deferred General: Yes bladder normal to palpation External Female Exam: No lesion Speculum Exam - Vagina: normal appearance of the vagina, normal palpation, normal vaginal discharge and not erythematous Speculum Exam - Cervix: normal appearance of the cervix and normal palpation Bimanual exam- vagina & uterus: normal bimanual exam, normal palpation, uterine size normal, bladder normal to palpation, consistency normal and normal palpation Bimanual Exam- Adnexa, other: normal adnexae, no masses and no tenderness Office Procedures Endometrial Biopsy Details: The patient was counseled regarding the indication and benefits of endometrial sampling to rule out endometrial pathology including not limited to endometrial hyperplasia or endometrial cancer and others; The alternatives (Either do nothing vs. hysteroscopy D&C) & the risks were discussed with the patient including but not limited: pain, uterine perforation, bleeding, infection, possible injury to bladder, bowel, ureter, possible need for blood transfusion with all its possible risks. The patient verbalized understanding all questions answered and signed consent. Urine test done in the office was negative The patient was placed into the dorsal lithotomy position; a speculum was inserted in the vagina. Using aseptic technique for the procedure, the cervix was cleansed with Betadine. The anterior lip of the cervix was grasped with a single tooth tenaculum. The uterus was sounded to 7 cm with a 4 mm Pipelle was used. Tissues samples were obtained and placed in formalin, in a patient labeled container and sent to the pathology department. At the end of the procedure, there was minimal bleeding noted The patient tolerated the procedure well and was discharged in good condition with the following instructions: Nothing in the vagina until the bleeding stops. No sex until the bleeding stops, to call if any of the following occurs: fever (>100.4), flu-like symptoms, abdominal pain, heavy bleeding, four smelling vaginal discharge. The patient was instructed to schedule a Follow up appointment in 2 weeks to discuss pathology results of the biopsy and treatment options. This note was generated with a voice recognition program. Some errors may have been overlooked during the review of this note. Sometimes these errors may affect the content or meaning of a given sentence. [id number] Biopsy Results AMB Test Urine AMB Test Urine Negative Last Edit by Yuli Benton CMA on 05/16/24 15:21 Results Reviewed Results Reviewed: Laboratory Last Values Tst Clinic Negative 05/16/24 15:21 Assessment & Plan Assessment & Plan (1) Abnormal uterine bleeding: Code(s): N93.9 - Abnormal uterine and vaginal bleeding, unspecified Category: Medical Plan: GC and chlamydia taken CBC, TSH, prolactin, HCG, and pelvic ultrasound ordered. Discussed with the patient the different causes of abnormal bleeding including thyroid disorders, uterine and ovarian pathology, endometrial hyperplasia, carcinoma and other potential causes. Discussed with the patient the work up including CBC (to r/o anemia), TSH, prolactin, pelvic Ultrasound, endometrial biopsy to r/o endometrial pathology. EMB done, see procedure note. All questions answered and the patient verbalized understanding. Recommended to start on Lysteda; so a more detailed discussion re: Lysteda including mechanism of action, benefits, risks including but not limited to thrombosis and strokes, Instructions were given on how to use, 2 tablets p.o. 3 times a day day 1 up to 3-5 days of menses and to schedule a 3 months follow-up appointment. The patient verbalized understanding and agreed with the plan. (2) At high risk for breast cancer: Code(s): Z91.89 - Other specified personal risk factors, not elsewhere classified Category: Medical Plan: Discussed with the patient her increased risk for Breast ca. The lifetime risk of breast cancer based on the Tyrer-Cuzick Model is 22.4% Recommended Intensification of breast Cancer screening with annual MRI breast in addition to annual mammogram and MRI alternating every 6 months. Mammogram done recently , Breast MRI ordered Will refer to Dr Bejarano for possible Genetic Ca counseling and possible testing, in addition to counseling regarding Chemoprevention strategies All questions answered, the patient verbalized understanding and agreed with the plan Orders: Orders US pelvic and transvaginal Today N93.9 - Abnormal uterine and vaginal bleeding, unspecified MR breast BI wo/w con Today Z80.3 - Family history of malignant neoplasm of breast AMB HCG Urine Test Today Z32.02 - Encounter for test, result negative Surgical Today N93.9 - Abnormal uterine and vaginal bleeding, unspecified Complete Blood Count no Diff Today N93.9 - Abnormal uterine and vaginal bleeding, unspecified TSH reflex Free T4 Today N93.9 - Abnormal uterine and vaginal bleeding, unspecified Prolactin Today N93.9 - Abnormal uterine and vaginal bleeding, unspecified HCG Quantitative Today N93.9 - Abnormal uterine and vaginal bleeding, unspecified MM screening mammo BI Today Z12.31 - Encounter for screening mammogram for malignant neoplasm of breast AMB Endometrial Biopsy Today N93.9 - Abnormal uterine and vaginal bleeding, unspecified CT NG by PCR Today N93.9 - Abnormal uterine and vaginal bleeding, unspecified Referrals General Surgery Referral Z91.89 - Other specified personal risk factors, not elsewhere classified Medications: New tranexamic acid Start 1st day of menses and take it up to 3-5 days of menses. 1,300 mg (2 x 650 mg) PO TID 5 days 30 tabs 2RF Coding Level of Care Code Est Pt Level 3 (25841) Diagnoses Abnormal uterine bleeding N93.9 At high risk for breast cancer Z.89 CPT Codes Endometrial Biopsy - CPT: 13107-[id number] Biopsy ([id number])
[2024-05-16 15:10] VITALS: BMI 26.9
== END 2024-05-16 15:48 | disposition home or self-care (01) ==
LOC: HO.HWS 15:00
PROVIDERS: PCP Internal Medicine; Visit Provider Obstetrics & Gynecology
DX: N93.9 Abnormal uterine and vaginal bleeding, unspecified (principal); Z91.89 Other specified personal risk factors, not elsewhere classified; Z32.02 Encounter for pregnancy test, result negative
CPT/HCPCS: 58100; 99213

== ENCOUNTER 2024-05-16 15:58 | Outpatient (REF) | payer OTHER, SELFPAY ==
[2024-05-16 16:34] LABS: Hematocrit 33.5 % (37.0-47.0); Hemoglobin 10.8 g/dl (12.0-16.0); Mean Corpuscular HGB Conc 32.2 g/dl (31.0-35.0); Mean Corpuscular Hemoglobin 27.8 pg (27.0-33.0); Mean Corpuscular Volume 86.1 fL (80.0-98.0); Mean Platelet Volume 10.6 fL (9.4-12.3); Platelet Count 268 X10*3/uL (160-400); Red Blood Count 3.89 X10*6/uL (4.20-5.50); Red Cell Distribution Width 12.6 % (11.0-16.0)
[2024-05-16 18:16] LABS: HCG Quantitative < 2 mIU/mL; TSH reflex Free T4 0.39 uIU/mL (0.32-4.0)
[2024-05-17 04:55] LABS: CT PCR NOT DETECTED (Not Detect.); NG PCR NOT DETECTED (Not Detect.)
[2024-05-17 16:34] LABS: Prolactin 14.2 ng/mL
== END 2024-05-16 15:59 | disposition home or self-care (01) ==
LOC: HO.LAB 15:58
PROVIDERS: PCP Internal Medicine; Visit Provider Obstetrics & Gynecology
DX: N93.9 Abnormal uterine and vaginal bleeding, unspecified (principal)
CPT/HCPCS: 0353U; 84146; 84443; 84702; 85027

== ENCOUNTER 2024-06-06 13:47 | Outpatient (REF) | payer OTHER, SELFPAY ==
--- NOTE | ~2024-06-06 | US_ITS ---
EXAMINATION: US PELVIS CLINICAL INFORMATION: Abnormal uterine and vaginal bleeding. COMPARISON: CT abdomen and pelvis 02/17/2020. TECHNIQUE: Ultrasound of the pelvis is performed using both transabdominal and transvaginal transducers along with Doppler. Transvaginal imaging is performed due to inadequate visualization transabdominally. FINDINGS: Uterus: The uterus is anteverted and measures 11.3 x 5.8 x 7.6 cm. The double wall endometrial thickness is 18 mm. There is a question of at least 2 lobular/polypoid masses in the endometrial cavity measuring 11 and 9 mm. The uterus is smooth in contour and has normal myometrial echogenicity. No visible fibroid. Nabothian cysts are seen in the cervix. Adnexa: Both ovaries are visualized. There is normal color flow to the adnexa. There is no ovarian torsion. There is no pelvic ascites or fluid collection. Right ovary measures 3.1 x 2.5 x 1.9 cm for a volume of 8 mL which includes a 1.7 cm corpus luteal cyst. Left ovary measures 2.7 x 1.8 x 1.6 cm for a volume of 4.1 mL. US/US pelvic and transvaginal IMPRESSION: Thickened endometrium with lobular masses/endometrial polyps. Hysterosonography is recommended for further evaluation.
== END 2024-06-06 13:48 | disposition home or self-care (01) ==
LOC: HO.US 13:47
PROVIDERS: PCP Internal Medicine; Visit Provider Obstetrics & Gynecology
DX: N93.9 Abnormal uterine and vaginal bleeding, unspecified (principal)
CPT/HCPCS: 76830; 76856

== ENCOUNTER 2024-06-07 14:45 | Outpatient (AMB) | payer OTHER, SELFPAY ==
--- NOTE | 2024-06-07 14:52 | MHC.OFFVIS ---
Vital Signs 06/07/24 15:18 Height 5 ft 3 in Weight 157 lb 6 oz BMI 27.9 BP 113/63 Blood Pressure Location Lt brachial Position Sitting Pulse 80 Intake Visit Reasons: Genetic testing Intake Note: Patient is seen in office for at high risk for breast cancer, possible genetic testing. Pt c/o: denies any concerns regarding her breast, has fm hx of breast cancer, mother at 30's is interested in genetic testing mm/us:07/15/23 Magnetic Testing Technician Required: No Accompanied by: Self / Same As Patient Allergies No Known Allergies Allergy (Verified 06/07/24 15:19) Medication List - Last Reconciled 06/08/24 by Sumeet Bejarano MD fvzmzov-cgqlzekibroha-acbnxjxi 250-250-65 mg (Excedrin Migraine) 2 tabs PO DAILY PRN HPI Comments Details: 39-year-old female patient determined to be at high risk for breast cancer due to family history. She reports her mother developing breast cancer when she was 28 years old. Her maternal great grandmother also was treated for breast cancer. Her maternal grandmother from lung cancer. Her mother also was diagnosed with stomach cancer. She denies any breast problems or breast symptoms. She is 3 para 3 with 3 daughters. Menarche was the age of 8. Her most recent mammogram dated 07/20/2023 revealed no mammogram specific evidence of malignancy (BI-RADS 1). An ultrasound also was negative for any suspicious changes (BI-RADS 1). Her Tyrer-Cuzick remaining lifetime risk of breast cancer was calculated at 22.5% placing her at high risk for breast cancer. She presents today to discuss genetic testing. [facility] Medical History Annual physical exam Surgical History History of carpal tunnel release History of tubal ligation Neck pain with history of cervical spinal surgery History of section Family History Father No problems noted. 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 Gender identity: Female Cognitive needs: No Hearing needs: No Vision needs: No Female Reproductive History Menstrual Age of Menarche: 8 Date of last menstrual period: 06/14/24 Total pregnancies: 3 Number of Living Children: 3 Review of Systems Const All systems reviewed & are unremarkable except as noted in HPI and below Physical Exam Vital Signs: Last Vital Signs Pulse 80 06/07/24 15:18 BP 113/63 06/07/24 15:18 BMI result Body Mass Index 27.9 Const General: cooperative and no acute distress Nutritional Appearance: well nourished Orientation/consciousness: patient oriented x3 Limitations: no limitations HEENT Head: Yes normocephalic and Yes atraumatic Ears: hearing grossly normal bilaterally Chest Other: Left breast: No skin change, no nipple retraction, no nipple discharge, no palpable mass, no enlarged lymph nodes. Right breast: No skin change, no nipple retraction, no nipple discharge, no palpable mass, no enlarged lymph nodes Resp Effort & Inspection: normal respiratory effort, no audible wheezes, no cough and no respiratory distress Cardio Jugular venous distension: no JVD GI Inspection: Yes normal to inspection Skin Other: Warm, dry, no rash Neuro General: patient oriented x3 Extrem General: Yes no clubbing, cyanosis or edema Assessment & Plan Assessment & Plan (1) At high risk for breast cancer: Code(s): Z91.89 - Other specified personal risk factors, not elsewhere classified Category: Medical (2) Family history of breast cancer: Code(s): Z80.3 - Family history of malignant neoplasm of breast Category: Medical Plan 39-year-old female patient presenting with a strong family history of breast cancer including her mother and maternal great grandmother found to have a Tyrer-Cuzick remaining lifetime risk of breast cancer of 22.5% placing her at high risk for breast cancer. Examination today revealed no suspicious findings in either breast. We did discuss further workup with genetic testing and she wishes to proceed with this. She will return approximately 6 weeks to review the results and discuss further management including breast MRI and more frequent clinical breast examination. Coding Level of Care Code New Pt Level 4 (18021) Diagnoses At high risk for breast cancer Z91.89 Family history of breast cancer Z80.3
[2024-06-07 15:18] VITALS: BP 113/63; PULSE 80; BMI 27.9
== END 2024-06-07 15:48 | disposition home or self-care (01) ==
PROVIDERS: PCP Internal Medicine; Visit Provider Surgery
DX: Z80.3 Family history of malignant neoplasm of breast (principal); Z91.89 Other specified personal risk factors, not elsewhere classified
CPT/HCPCS: 99204

== ENCOUNTER → 2024-06-07 14:45 | Outpatient (BNVA) | payer OTHER, SELFPAY | PROVIDERS: PCP Internal Medicine; Visit Provider Surgery ==

== ENCOUNTER 2024-06-08 14:00 | Outpatient (REF) | payer OTHER, SELFPAY ==
--- NOTE | ~2024-06-08 | MM_ITS ---
EXAMINATION: MM SCREENING DIGITAL BREAST TOMOSYNTHESIS, BILATERAL CLINICAL INFORMATION: Screening. Asymptomatic. COMPARISON: Mammography: This study is compared with prior exams dating back to 2022. TECHNIQUE: Digital breast tomosynthesis is performed in both the craniocaudal and mediolateral oblique views along with computer-aided detection (CAD). Synthesized 2D images are generated from the tomosynthesis. FINDINGS: The breasts are heterogeneously dense, which may obscure small masses (ACR BI-RADS breast composition Category c). There are no significant masses, abnormal calcifications, or other abnormalities. MM/MM tomosynthesis screening BI IMPRESSION: No mammographic evidence of malignancy. ASSESSMENT: BI-RADS BI-RADS 1 - Negative RECOMMENDATION: Routine annual mammography screening. 1 year F/U This examination should not preclude the clinical evaluation of a suspicious palpable abnormality. This patient's information was entered into a reminder system with a target due date for their next mammogram.
== END 2024-06-08 14:01 | disposition home or self-care (01) ==
LOC: HO.MAMMO 14:00
PROVIDERS: PCP Internal Medicine; Visit Provider Internal Medicine
DX: Z12.31 Encounter for screening mammogram for malignant neoplasm of breast (principal)
CPT/HCPCS: 77063; 77067

== ENCOUNTER → 2024-06-08 14:00 | Outpatient (BNV) | payer OTHER, SELFPAY | PROVIDERS: PCP Internal Medicine; Visit Provider Radiology Diagnostic Radiology | DX: Z12.31 Encounter for screening mammogram for malignant neoplasm of breast (principal) | CPT/HCPCS: 77063; 77067 ==

== ENCOUNTER 2024-06-26 09:15 | Outpatient (RCR) | payer OTHER, SELFPAY ==
[2024-06-19 12:43] VITALS: BP 98/57; PULSE 68; RESP 14; TEMP 37.1; O2SAT 100
[2024-06-19] MEDS: Iron Sucrose Complex 200 MG in 0.9 % Sodium Chloride 100 ML 440 MG IV (12:56)
[2024-06-19] MEDS: 0.9 % Sodium Chloride Flush 10 ML SYRINGE 5 ML IVFLUSH (13:18)
[2024-06-26 09:15] VITALS: BP 112/63; PULSE 80; RESP 14; TEMP 36.5; O2SAT 99
[2024-06-26] MEDS: Iron Sucrose Complex 200 MG in 0.9 % Sodium Chloride 100 ML 440 MG IV (09:25)
[2024-06-26] MEDS: 0.9 % Sodium Chloride Flush 10 ML SYRINGE 5 ML IVFLUSH (09:49)
== END 2024-06-26 09:57 | disposition home or self-care (01) ==
LOC: HO.INF 09:15
PROVIDERS: Visit Provider Internal Medicine
DX: D50.9 Iron deficiency anemia, unspecified (principal)
CPT/HCPCS: 96365; J1756

== ENCOUNTER 2024-06-27 10:49 | Outpatient (AMB) | payer OTHER, SELFPAY ==
[2024-06-27 10:57] VITALS: BP 98/62; BMI 27.3
--- NOTE | 2024-06-27 10:57 | A.OFFVIS_ITS ---
Vital Signs 06/27/24 10:57 Height 5 ft 3 in Weight 154 lb 5.177 oz BMI 27.3 BP 98/62 Intake Visit Reasons: annaul/EMB results/US follow up Window Tinter Required: No Information Interpreted: non-clinical & clinical Production Service Manager: Production Service Manager Present (Yuli MAYA) Accompanied by: Daughter Allergies No Known Allergies Allergy (Verified 06/27/24 11:02) HPI Comments Details: Presenting for annual exam. No complaints. Last Pap/HPV was in 06/19 was negative Last Mammogram was done in 06/20, the results are still pending The following workup was done.: H&H= 11.4/36.1 TSH, prolactin, hCG, GC and chlamydia were negative. Endometrial biopsy pathology showed the following: Benign endometrium with extensive stromal breakdown, poorly-developed secretory to inactive glands, and decidual stromal change suggesting progestin effect; no atypia or carcinoma Co testing was done in 06/19 was negative. Mammogram was done in 06/20 results are still pending Pelvic ultrasound showed the following: Uterus: The uterus is anteverted and measures 11.3 x 5.8 x 7.6 cm. The double wall endometrial thickness is 18 mm. There is a question of at least 2 lobular/polypoid masses in the endometrial cavity measuring 11 and 9 mm. The uterus is smooth in contour and has normal myometrial echogenicity. No visible fibroid. Nabothian cysts are seen in the cervix. Adnexa: Both ovaries are visualized. There is normal color flow to the adnexa. There is no ovarian torsion. There is no pelvic ascites or fluid collection. Right ovary measures 3.1 x 2.5 x 1.9 cm for a volume of 8 mL which includes a 1.7 cm corpus luteal cyst. Left ovary measures 2.7 x 1.8 x 1.6 cm for a volume of 4.1 mL. [facility] Medical History Annual physical exam Surgical History History of carpal tunnel release History of tubal ligation Neck pain with history of cervical spinal surgery History of section Family History Father No problems noted. 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 Gender identity: Female Cognitive needs: No Hearing needs: No Vision needs: No Female Reproductive History Menstrual Age of Menarche: 8 Date of last pap smear: 06/04/23 Date of Mammogram: 06/08/24 Physical Exam Vital Signs: Last Vital Signs BP 98/62 06/27/24 10:57 BMI result Body Mass Index 27.3 Assessment & Plan Assessment & Plan (1) Abnormal uterine bleeding: Code(s): N93.9 - Abnormal uterine and vaginal bleeding, unspecified Category: Medical Plan: Discussed with the patient the results of the work up done and options of treatment including Lysteda, BCP's, Mirena IUD, endometrial ablation and hysterectomy. All pros, cons, risks and benefits if each option was discussed with the patient and the patient decided to go ahead with Lysteda , so a more detailed discussion re: Lysteda including mechanism of action, benefits, risks including but not limited to thrombosis and strokes, Instructions were given on how to use, 2 tablets p.o. 3 times a day day 1 up to 3-5 days of menses and to schedule a 3 months follow-up appointment. The patient verbalized understanding and agreed with the plan. (2) Well woman exam: Code(s): Z01.419 - Encounter for gynecological examination (general) (routine) without abnormal findings Category: Medical Plan: Cotesting not indicated this year. Instructions given the history of schedule next screening Mammogram in 06/16. Counseled the patient about the recommended dietary allowance of 1000 mg of Calcium & 600 IU of vitamin D. The patient was instructed to perform monthly self-breast exams and to schedule an annual exam in a year; All questions answered and the patient verbalized understanding. Instructed the patient to schedule annual exam in a year (3) Endometrial polyp: Code(s): N84.0 - Polyp of corpus uteri Category: Medical Plan: Discussed with the patient the results of the ultrasound showing 2 polypoid masses, recommended hysteroscopy D&C possible polypectomy/myomectomy. Discussed with the patient the procedure , all benefits and risks including but not limited to inability to complete the procedure , insufficient endometrial tissue for a complete evaluation of the endometrial cavity , bleeding, infection, possible need for blood transfusion with all its risk ( HIV,syphilis, Hepatitis, anaphylaxis shock, others..), injury to bladder, rectum, possible need for laparoscopy/laparotomy or hysterectomy. The patient verbalized un derstanding and signed the consent. Instructions given the patient to stay NPO after midnight the day prior to the procedure and to take only the specific medication (s) discussed the morning of the surgical procedure and to schedule a 2 week postoperative appointment Medications: New tranexamic acid 1,300 mg (2 x 650 mg) PO TID 5 days 30 tabs 2RF Coding Level of Care Code Est Pt Level 3 (38332) Diagnoses Abnormal uterine bleeding N93.9 Well woman exam Z01.419 Endometrial polyp N84.0
== END 2024-06-27 12:15 | disposition home or self-care (01) ==
LOC: HO.HWS 10:49
PROVIDERS: PCP Internal Medicine; Visit Provider Obstetrics & Gynecology
DX: N93.9 Abnormal uterine and vaginal bleeding, unspecified (principal); Z01.419 Encounter for gynecological examination (general) (routine) without abnormal findings; N84.0 Polyp of corpus uteri
CPT/HCPCS: 99213

== ENCOUNTER → 2024-06-27 10:49 | Outpatient (BNVA) | payer OTHER, SELFPAY | PROVIDERS: PCP Internal Medicine; Visit Provider Obstetrics & Gynecology ==

== ENCOUNTER 2024-07-06 07:28 | Day surgery (SDC) | payer OTHER, SELFPAY ==
[2024-07-06 08:02] VITALS: BMI 28.3
--- NOTE | 2024-07-06 08:09 | HO.ANESPROP2 ---
[facility] Active Problems Active Problems: All Active Problems Endometrial polyp (Acute) Family history of breast cancer (Acute) At high risk for breast cancer (Acute) Abnormal uterine bleeding (Acute) Menorrhagia (Acute) Sebaceous cyst (Acute) Open comedone (Acute) Iron deficiency anemia (Chronic) Well woman exam (Acute) Annual physical exam (Acute) Past Medical History Medical History Annual physical exam Family History Family History Father No problems noted. Mother Breast cancer Stomach cancer Depression Epilepsy Sister History of total hysterectomy Paternal Grandfather Liver cirrhosis Maternal Aunt Epilepsy Surgical History Surgical History History of carpal tunnel release History of tubal ligation Neck pain with history of cervical spinal surgery History of section History of Problems with Anesthesia: No Social History Social History Household Members: Family Housing: House Do you presently have visiting nurse or other home services: No Alcohol intake: current Patient Tobacco Use Status: Never used Tobacco e-Cigarette/Vaping Use: Never Used Advance Directives: No Advance Directives Information Provided: Yes service: No 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 occupational status: employed 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 Gender identity: Female Cognitive needs: No Hearing needs: No Vision needs: No Meds Allergies Allergy/AdvReac Type Severity Reaction Status Date / Time No Known Allergies Allergy Verified 07/06/24 08:07 Active Medications: Current Medications Lactated Ringer's (Lr) 1,000 mls @ 100 mls/hr IVCONT .Q10H [facility] Home Medications ?Medication ?Instructions ?Recorded ?Confirmed ?Last Taken ?Type worduzd-quafgkemsqwuy-btxckoal 250 2 tab PO DAILY PRN headache 10/07/23 07/06/24 Unknown History mg-250 mg-65 mg tablet (Excedrin Migraine) Exam Height,Weight and Vital Signs: Height 5 ft 3 in Weight 72.575 kg Airway Mallampati Class: I TM Dist: >3cm Neck ROM: Full Loose/Missing/Broken Teeth: No Heart: RRR Lungs: CTA Assessment and Plan Assessment Anesthesia Assessment: Anesthesia Plan Discussed and Chart Reviewed Final Anesthetic Review History of Problems with Anesthesia: No NPO: Yes ASA Class: II Final Preanesthetic Review: Meds/Allgs Chart Reviewed, Consent Obtained/Reviewed and Anes Risks/Benef Reviewed Patient Risk: Low Procedure Risk: Low Anesthetic Plan Anesthetic Plan: GA Disposition: Standard PACU
[2024-07-06 08:14] LABS: UPreg QC Valid YES; Urine Pregnancy NEGATIVE (NEGATIVE)
[2024-07-06 08:21] VITALS: BP 99/59; PULSE 72; RESP 16; TEMP 37.3; O2SAT 100
[2024-07-06] MEDS: Lactated Ringers 1,000 ML 100 ML IVCONT (08:36)
--- NOTE | 2024-07-06 08:59 | MHC.SHP ---
Pre-Procedural Eval Section A - 24 Hr Update-Section A only Date of Service: 07/06/24 The patient is an INPATIENT: No Changes since office visit: No Cold of Flu in the past 2 weeks, No New Medical Problems, No Changes in Medication and No Patient answered all questions The patient has been examined within 24 hours of the surgical procedure. The History & Physical has been completed within 30 days and I have reviewed it.: Yes Section B - Complete if H&P > 30 days Chief Complaint: Polyp of corpus uteri Allergies: Allergies Allergy/AdvReac Type Severity Reaction Status Date / Time No Known Allergies Allergy Verified 07/06/24 08:07 Plan Diagnosis/Plan: Unchanged I have reviewed the history and physical and performed a pertinent physical examination on my patient. No changes have occurred unless specified. Time Spent With Patient Time: Total time managing care of this patient today ____ minutes.
--- NOTE | 2024-07-06 09:43 | P.BOP_ITS ---
Brief Operative Note Date of Service: 07/06/24 Pre-op diagnosis: Abnormal uterine bleeding, endometrial polyps by ultrasound Post-op diagnosis: same (Normal endometrial cavity) Procedure: Hysteroscopy D&C Surgeon: Artem Hunt MD Anesthesia: GLMA Was an Piano Technician used for this Procedure?: No Estimated blood loss (mL): 0 Pathology: other (Endometrial Scrapping.) Condition: stable Disposition: PACU
--- NOTE | 2024-07-06 09:44 | W.PM.OPN ---
Operative Note Operative Note Date of Service: 07/06/24 Narrative: Preop Diagnosis: Abnormal uterine bleeding, endometrial polyps by ultrasound Operation: Diagnostic Hysteroscopy, Dilataion & Curettage Post Op Diagnosis: Normal endometrial and endocervical cavity, no evidence of pathology QBL: Minimal Anesthesia: GLMA Surgeon: Artem Hunt MD Telecommunicator Supervisor: None Complication: None Pathology: Endometrial Scrapings Procedure: The patient was put in the dorsal lithotomy position, scrubbed, and draped in the usual manner. A sterile speculum was inserted in the patient's vagina. The anterior lip of the cervix was grasped with a single tooth tenaculum. The cervix was dilated up to 5 mm, then the scope was inserted in the patient's uterus. Inspection revealed normal endocervical & endometrial cavity with no evidence of pathology. The scope was taken out of the uterine cavity , then sharp curetting was carried on with no complications. At the end of the procedure, all instruments were taken out of the patient uterine and vaginal cavity. The single tooth tenaculum was removed and homeostasis was assured using pressure. The patient tolerated the procedure well and was transferred to the PACU in a stable condition.
[2024-07-06 09:46] VITALS: BP 100/57; PULSE 59; RESP 16; TEMP 36.6; O2SAT 100
[2024-07-06 09:51] VITALS: BP 99/56; PULSE 56; RESP 16; O2SAT 100
[2024-07-06 09:56] VITALS: BP 107/59; PULSE 73; RESP 16; TEMP 36.6; O2SAT 100
[2024-07-06 10:01] VITALS: BP 103/52; PULSE 73; RESP 16; O2SAT 100
[2024-07-06 10:16] VITALS: BP 106/62; PULSE 64; RESP 18; TEMP 37; O2SAT 100
== END 2024-07-06 10:59 | disposition home or self-care (01) ==
PROVIDERS: PCP Internal Medicine; Visit Provider Obstetrics & Gynecology
PROC: 0UDB8ZZ Extraction of Endometrium, Via Natural or Artificial Opening Endoscopic (ICD-10-PCS; CPT 58558; principal; 2024-07-06 09:30)
DX: N93.9 Abnormal uterine and vaginal bleeding, unspecified (principal); Z98.51 Tubal ligation status
CPT/HCPCS: 58558; 81025; 88305; J1100; J1885; J2250; J2405; J2704; J3010

== ENCOUNTER → 2024-07-06 07:28 | Outpatient (BNV) | payer OTHER, SELFPAY | PROVIDERS: PCP Internal Medicine; Visit Provider Obstetrics & Gynecology | DX: N84.0 Polyp of corpus uteri (principal) | CPT/HCPCS: 58558 ==

== ENCOUNTER 2024-08-08 15:31 | Outpatient (AMB) | payer OTHER, SELFPAY ==
--- NOTE | 2024-08-08 15:32 | A.OFFVIS_ITS ---
Vital Signs 08/08/24 15:33 Height 5 ft 3 in Weight 154 lb BMI 27.3 Intake Visit Reasons: post op Medical Lab Specialist Required: No Information Interpreted: non-clinical & clinical Accompanied by: Self / Same As Patient Allergies No Known Allergies Allergy (Verified 08/08/24 15:34) HPI Comments Details: The patient is presenting for follow-up to discuss the results of her abnormal uterine bleeding workup and options of treatment. The following workup was done.: H&H= 11.4/36.1 TSH, hCG, prolactin, GC and chlamydia were negative. Endometrial biopsy pathology showed no the following: Benign endometrium with extensive stromal breakdown, poorly-developed secretory to inactive glands, and decidual stromal change suggesting progestin effect; no atypia or carcinoma Co testing was done in 06/16 was negative. Mammogram was negative. Pelvic ultrasound showed the following: Uterus: The uterus is anteverted and measures 11.3 x 5.8 x 7.6 cm. The double wall endometrial thickness is 18 mm. There is a question of at least 2 lobular/polypoid masses in the endometrial cavity measuring 11 and 9 mm. The uterus is smooth in contour and has normal myometrial echogenicity. No visible fibroid. Nabothian cysts are seen in the cervix. Adnexa: Both ovaries are visualized. There is normal color flow to the adnexa. There is no ovarian torsion. There is no pelvic ascites or fluid collection. Right ovary measures 3.1 x 2.5 x 1.9 cm for a volume of 8 mL which includes a 1.7 cm corpus luteal cyst. Left ovary measures 2.7 x 1.8 x 1.6 cm for a volume of 4.1 mL Hysteroscopy D&C showed normal endometrial cavity with no evidence of endometrial polyp, pathology showed the following: Benign late secretory endometrium; no atypia or carcinoma. [facility] Medical History Annual physical exam Surgical History History of carpal tunnel release History of tubal ligation Neck pain with history of cervical spinal surgery History of section Family History Father No problems noted. 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 All pros, cons, risks and benefits if each option was discussed with the patient and the patient decided to go ahead with Mirena IUD so a more detailed discussion about it was conducted including mechanism of action, risks (uterine perforation, infection, injury to bladder, bowel, displacement, and others) benefits (hypo menorrhea, amenorrhea, ...). GC/CT were taken recently in were negative and the patient was instructed to schedule Mirena IUD insertion on day 1-5 of next cycle . All questions answered, the patient verbalized understanding Coding Level of Care Code Est Pt Level 3 (50253) Diagnoses Abnormal uterine bleeding N93.9
[2024-08-08 15:33] VITALS: BMI 27.3
== END 2024-08-08 15:59 | disposition home or self-care (01) ==
LOC: HO.HWS 15:31
PROVIDERS: PCP Internal Medicine; Visit Provider Obstetrics & Gynecology
DX: N93.9 Abnormal uterine and vaginal bleeding, unspecified (principal)
CPT/HCPCS: 99213

== ENCOUNTER → 2024-08-08 15:31 | Outpatient (BNVA) | payer OTHER, SELFPAY | PROVIDERS: PCP Internal Medicine; Visit Provider Obstetrics & Gynecology ==

== ENCOUNTER 2024-08-23 11:03 | Emergency (ER) | payer OTHER, SELFPAY ==
--- NOTE | ~2024-08-23 | XR_ITS ---
EXAMINATION: XR SHOULDER, RIGHT CLINICAL INFORMATION: Right shoulder pain. COMPARISON: None available. TECHNIQUE: Four views of the right shoulder. FINDINGS: The glenohumeral and acromioclavicular joints are intact. Joint spaces are maintained. There is no fracture. Regional soft tissue is normal in appearance. The visualized right lung is clear. XR/XR shoulder RT min 2V IMPRESSION: No fracture or dislocation. No significant degenerative disease. Electronically signed by: Beau Glaser DO 08/23/2024 02:28 PM EDT
[2024-08-23 11:24] VITALS: BP 104/66; PULSE 87; RESP 16; TEMP 36.7; O2SAT 98; BMI 28.3
--- NOTE | 2024-08-23 11:30 | ED.GENADULT ---
HPI - General Adult General Chief complaint: Extremity Injury, Upper Stated complaint: R shoulder dislocation? Time Seen by Provider: 08/23/24 12:05 Source: patient Mode of arrival: ambulatory Limitations: no limitations History of Present Illness HPI narrative: 39 yold female with pmh of Iron defciency anemia presents to the ED for right shoulder pain without any trauma. Patient states hearing right shoulder pop on tuesday while reaching back in her car for an object. patient states able to move shoulder, but with pain. Related Data Home Medications ?Medication ?Instructions ?Recorded ?Confirmed [id number]-[id number]-[id number] 250 2 tab PO DAILY PRN headache 10/07/23 07/06/24 mg-250 mg-65 mg tablet (Excedrin Migraine) Previous Rx's ?Medication ?Instructions ?Recorded naproxen 500 mg tablet 500 mg PO BID PRN pain 7 days #14 08/23/24 tabs prednisone 20 mg tablet 40 mg (2 x 20 mg) PO DAILY 5 days 08/23/24 #10 tabs Allergies Allergy/AdvReac Type Severity Reaction Status Date / Time No Known Allergies Allergy Verified 08/23/24 11:25 Review of Systems Review of Systems: right shoulder pain Yes all other systems are reviewed and are negative PMF Past Medical History Medical History Annual physical exam Surgical History History of carpal tunnel release History of tubal ligation Neck pain with history of cervical spinal surgery History of section Family History Family History Father No problems noted. 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 Gender identity: Female Cognitive needs: No Hearing needs: No Vision needs: No Physical Exam ED Vital Signs: Vital Signs - 24 hr 08/23/24 16:22 Temperature 98.1 F Pulse Rate 87 Respiratory Rate 16 Blood Pressure 104/66 Pulse Oximetry 98 Oxygen Delivery Method Room Air BMI result Body Mass Index 28.3 Const General: cooperative, healthy appearing, comfortable, no acute distress, well developed, alert, awake and Physically active Orientation/consciousness: patient oriented x3 [facility] Head: Yes normal to inspection, Yes No palpable skull fracture present, Yes normocephalic and Yes atraumatic Eyes General: appearance normal, both eyes and all related structures Neck Neck: Yes normal visual inspection, Yes full ROM, Yes no lymphadenopathy, Yes no meningeal signs, Yes trachea midline, Yes supple, No anterior neck swelling, No midline deformity and No tender Chest Chest palpation & inspection: normal inspection of the chest and normal palpation of entire chest wall Resp Effort & Inspection: normal respiratory effort and able to speak in complete sentences Auscultation: clear to auscultation bilaterally Cardio Jugular venous distension: no JVD Heart sounds: S1 normal heart sound present and S2 normal heart sound present GI Inspection: Yes normal to inspection Palpation (GI): Soft to palpation, not firm, nontender, no guarding and not rigid General: Yes no CVA tenderness Back/Spine/Pelvis Back: no CVA tenderness and No back tenderness Skin General skin exam: no rashes or lesions noted, elasticity normal and turgor normal Neuro General: patient oriented x3, gait normal, tone normal, moves all extremities, Normal light touch and pain sensation, no meningeal signs, no focal motor deficits, CN's II-XI intact bilaterally and normal sensation to monofilament Extrem General: Yes normal to inspection, Yes full ROM and Yes capillary refill normal Shoulder/upper arm images: 1. positive for anterior shoulder tenderness on palpation. positive for pain on range of motion shoulder. Negative for ecchymosis, erythema, deformity, swelling, hotness, or coldness. Motor, neuro, and vascular exam is intact. Psych Appearance: grossly normal, well kempt and not disheveled Course Course Course Narrative: RME: DOne by KRYSTA jeong. 39 yold female presents to the ED for shoulder pain. Patient states on tuesday she was reaching back in her car to grab something and she heard a pop in her right shoulder and since than pain on range of motion of shoulder. Patient is able to move shoulder but with pain. Positive for tenderness on palpation of the anterior glenohumeral area. Right hand able to touch left shoulder. Patient is able to elevate shoulder but with pain. Vascular neuro exam intact. Right upper extremity negative for swelling, redness, ecchymosis, or deformity. Medical Decision Making Medical Decision Making MDM Narrative: 39 yold female with no pmh presents to the ED for Right shoulder pain. Patient heard a popping sound and right shoulder while trying to reach backwards into a car to get an object. Vascular neuro exam intact. Motor exam intact but with pain. No swelling, redness, ecchymosis, or deformity. X-ray negative for fracture or dislocation. Most likely rotator cuff muscle tear. Patient informed to follow up with primary care provider for MRI. Not suspecting DVT, compartment syndrome, dislocation, cellulitis, osteomyelitis, or arterial occlusion. Differential Diagnosis Differential Diagnoses: The differential diagnosis associated with the presentation includes (fracutre, disclocation, ) Admission/Observation Consideration of admission/observation: Escalation of care including admission/observation considered Independent Interpretation I performed an independent interpretation of an: Plain X-Ray Radiology Impression Discussion of test interpretation with radiology: I have reviewed the radiologist's reading. Independent Historian Clinical information obtained from an independent historian. History obtained from or confirmed by: Other (patient) Prescription Management I considered prescription management with: Pain Medication Discharge Plan Discharge Clinical Impression: Shoulder pain, Rotator cuff injury Patient Disposition: Home, Self-Care Instructions: Rotator Cuff Injury (ED), Shoulder Pain (ED) Additional Instructions: X-ray came back normal. Most likely you tore a muscle in his shoulder. You will need an MRI by a medical provider. Recommend limited overhead movements and heavy lifting. Recommend ice applied for 15 minutes every 1-2 hours for the 1st 1 or 2 days after injury. Return to the ED immediately for any severe pain, swelling, redness, bluish discoloration, inability to move shoulder, chest pain, shortness of breath, fever, chills, or any other concerning symptoms. FINDINGS: The glenohumeral and acromioclavicular joints are intact. Joint spaces are maintained. There is no fracture. Regional soft tissue is normal in appearance. The visualized right lung is clear. XR/XR shoulder RT min 2V IMPRESSION: No fracture or dislocation. No significant degenerative disease. Electronically signed by: Beau Glaser DO 08/23/2024 02:28 PM EDT RP Prescriptions: New naproxen 500 mg tablet 500 mg PO BID PRN (Reason: pain) 7 Days Qty: 14 0RF prednisone 20 mg tablet 40 mg PO DAILY 5 Days Qty: 10 0RF No Action Excedrin Migraine 250-250-65 mg tablet 2 tab PO DAILY PRN (Reason: headache ) [place] [facility] [Provider Group] (Right shoulder pain. Possible rotator cuff tear) Stand Alone Forms: Work/School Release Interventions: ED Discharge Assessment Last Done: 08/23/24 16:22 Discharge Date/Time: 08/23/24 16:22 Print Language: Yemeni
[2024-08-23 16:22] VITALS: BP 104/66; PULSE 87; RESP 16; TEMP 36.7; O2SAT 98
== END 2024-08-23 16:22 | disposition home or self-care (01) ==
PROVIDERS: Emergency Provider Student in an Organized Health Care Education/Training Program; PCP Internal Medicine
DX: S46.011A Strain of muscle(s) and tendon(s) of the rotator cuff of right shoulder, initial encounter (principal); M25.511 Pain in right shoulder; X58.XXXA Exposure to other specified factors, initial encounter; Y93.89 Activity, other specified; Y92.89 Other specified places as the place of occurrence of the external cause; Y99.8 Other external cause status
CPT/HCPCS: 73030; 99282; 99283

== ENCOUNTER 2024-08-31 15:20 | Outpatient (AMB) | payer OTHER, SELFPAY ==
[2024-08-31 15:21] VITALS: BP 104/60; PULSE 93; O2SAT 97; BMI 27.6
--- NOTE | 2024-08-31 15:21 | MHC.PC.OV ---
Vital Signs 08/31/24 15:21 Height 5 ft 3 in Weight 156 lb BMI 27.6 BP 104/60 Blood Pressure Location Lt brachial Position Sitting Pulse 93 Pulse Source Pulse Oximeter Pulse Oximetry (%) 97 Oxygen Delivery Method Room Air Intake Visit Reasons: E.D Follow Up Pastry Baker Required: No Allergies No Known Allergies Allergy (Verified 08/31/24 15:22) Medication List - Last Reconciled 08/31/24 by Roma Shukla PA-C nrdsxnd-[id number]-jftbsowp 250-250-65 mg (Excedrin Migraine) 2 tabs PO DAILY PRN naproxen 500 mg PO BID PRN 7 days prednisone 40 mg (2 x 20 mg) PO DAILY 5 days Tobacco use date assessed: 01/27/24 Dental Screening Dental Screen Date: 01/27/24 HPI E.D Follow Up HPI Details 39-year-old female with past medical history of iron-deficiency anemia last seen by Dr. Rhodes January 2024 coming in for hospital follow up. In review of the notes, patient was seen in [facility] ED 08/23/2024 for right shoulder pain after reaching back in her car for an object. X-ray negative for acute fracture or dislocation and diagnosed with acute rotator cuff strain and discharged home. Today she tells us she is still having shoulder pain and the medication she is using does not help. She has an appointment with orthopedics 09/11/2024. She has been using shoulder sling occasionally during the day when at work but not when she gets home. [facility] Medical History Annual physical exam Surgical History History of carpal tunnel release History of tubal ligation Neck pain with history of cervical spinal surgery History of section Family History Father No problems noted. 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 How often do you have a drink containing alcohol?: Never 3. How often do you have six or more drinks on one occasion?: Never Total Score: 0 SUKHDEV-7 AMB Questionnaire SUKHDEV-7 Date SUKHDEV - 7 assessed: 01/27/24 Source: Developed by Drs. Parker Schmitz, Ashleigh Villalta, Michael House and colleagues, with an educational ismael from [employer]. Review of Systems Const Denies body aches, Denies chills and Denies fever(s) Eyes Reports no additional complaints ENT Reports no additional complaints Card Denies chest pain, Denies leg edema, Denies lightheadedness and Denies dyspnea Resp Denies dyspnea GI Reports no additional complaints Reports no additional complaints Musc Details: right shoulder pain Physical exam (Primary Care) Vital Signs: Oxygen Delivery Method Room Air 08/31/24 15:21 BMI result Body Mass Index 27.6 Tobacco/Smoking Status: Tobacco use Status Tobacco use date assessed 01/27/24 08/31/24 15:22 Patient Tobacco Use Status Never used Tobacco 08/31/24 15:22 e-Cigarette/Vaping Use Never Used 08/31/24 15:22 Thrive Assessment: Date of Thrive Assessment Date Thrive assessed 01/27/24 08/31/24 15:22 Const General: cooperative, healthy appearing, comfortable and no acute distress Orientation/consciousness: patient oriented x3 HENAK Head: Yes normocephalic Ears: hearing grossly normal bilaterally General nose exam: Normal external nose present Eyes General: appearance normal, both eyes and all related structures Conjunctivae: conjunctivae normal Neck Neck: Yes full ROM and Yes no lymphadenopathy Resp Effort & Inspection: normal respiratory effort Auscultation: clear to auscultation bilaterally, no crackles, no rales, no rhonchi and no wheezes Cardio Rate: regular rate Rhythm: regular rhythm Skin General skin exam: no rashes or lesions noted Neuro General: patient oriented x3 Gait exam (Neuro): Normal gait present Extrem Other: Tenderness to palpation over entire glenohumeral joint and ROM limited due to pain General: Yes normal to inspection, Yes full ROM and No edema Psych Affect: normal affect Attitude: cooperative Insight: Good insight present (Psych) Judgement: Good judgement present (Psych) Coding Level of Care Code Est Pt Level 3 (16113) Diagnoses Right shoulder pain M25.511 Assessment & Plan Assessment & Plan (1) Right shoulder pain: Code(s): M25.511 - Pain in right shoulder Category: Medical Plan: Patient states the naproxen is not working for her and would like to try something additional for pain. Prescription for meloxicam sent to pharmacy and advised patient not to take with naproxen and prescription sent for cyclobenzaprine to take for nighttime pain. Referral sent for physical therapy for right shoulder and Patient to follow up with Orthopedics 09/11/2024. Advised patient to limit the use of the sling as it can cause further limited range of motion. Plan This note was constructed using voice recognition software. While every effort has been made to ensure accuracy and gravity prospecting observer helper, still areas may have been included sometimes these areas may affect the content or meeting of the given symptoms. Total time spent caring for the patient today was 30 minutes. This includes time spent before the visit reviewing the chart, time spent during the visit, and time spent after the visit and documentation. Orders: Orders PT Evaluation and Treatment Today M25.511 - Pain in right shoulder Medications: New meloxicam 15 mg PO DAILY 20 tabs 0RF cyclobenzaprine 5 mg PO BEDTIME PRN 14 tabs 0RF muscle spasm On Hold naproxen Hold Comment: Doctor's Order 500 mg PO BID 7 days PRN 14 tabs 0RF pain
== END 2024-08-31 15:52 | disposition home or self-care (01) ==
PROVIDERS: PCP Internal Medicine
DX: M25.511 Pain in right shoulder (principal)

== ENCOUNTER → 2024-08-31 15:20 | Outpatient (BNVA) | payer OTHER, SELFPAY | PROVIDERS: PCP Internal Medicine ==

== ENCOUNTER 2024-09-11 14:02 | Outpatient (AMB) | payer OTHER, SELFPAY ==
--- NOTE | 2024-09-11 14:09 | A.OFFVIS_ITS ---
Vital Signs 09/11/24 14:22 Height 5 ft 3 in Weight 156 lb BMI 27.6 Handedness Right Intake Visit Reasons: [facility] - right shoulder pain, DOI 08/20/24 Intake Note: Marlene is a 39 year old right hand dominant female who presents today as a new patient for a evaluation of her right shoulder pain. She mentions her pain is constant for a couple weeks. Patient reports she was reach be hind the seat in her car and she heard/felt a pop in her shoulder. Patient starts from her clavicle down to her shoulder. She mentions that her pain is worse with ROM and it also feels weak. Allergies No Known Allergies Allergy (Verified 09/11/24 14:21) HPI HPI [facility] - right shoulder pain, DOI 08/20/24: Details: 39-year-old right hand dominant female who presents in the office today, as a new patient, for an evaluation of right shoulder pain. The patient presented to the ED on 08/23/24 status post heard a pop in the right shoulder on 08/20/24, when reaching back in her car for an object. X-rays of the right shoulder were obtained. Informed the patient that she will need an MRI for further evaluation. She was recommended to limit overhead movements and heavy lifting. She was advised to apply ice for relief. While in the office today, the patient confirms hearing a pop in her right shoulder when reaching behind the seat in the car. She reports her pain starts from her right clavicle and radiates down to the right shoulder. She reports her pain is worse with ROM and she also experiences weakness. [facility] Medical History Annual physical exam Surgical History History of carpal tunnel release History of tubal ligation Neck pain with history of cervical spinal surgery History of section Family History Father No problems noted. 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 Gender identity: Female Cognitive needs: No Hearing needs: No Vision needs: No Female Reproductive History Menstrual Age of Menarche: 8 Review of Systems Const All systems reviewed & are unremarkable except as noted in HPI and below Physical Exam Vital Signs: BMI result Body Mass Index 27.6 Const General: cooperative and no acute distress Orientation/consciousness: patient oriented x3 Resp Effort & Inspection: normal respiratory effort and able to speak in complete sentences Cardio Peripheral pulses: Peripheral pulses 2+ throughout Skin General skin exam: no rashes or lesions noted Neuro General: patient oriented x3 Extrem Other: Right shoulder: 90 degrees of forward flexion and abduction. External rotation to neutral. Pain with belly lift off. 4/5 strength with an empty can. Negative drop arm. Able to reach the back pocket. NVI. Office Procedures Joint Injection/Aspiration Joint Injection/Aspiration Primary Site: right shoulder Prep: site was prepped using aseptic technique, ethochloride spray was applied and injection warnings given Injected: 80 mg of, DepoMedrol, with 8 mL of (2% plain lido ) and in the subcromial space Approach Used: posterolateral Procedure: The patient tolerated the procedure well, but had some pain with the injection and there was some relief with the local anesthesia Coding 63064 - Large joint Procedure code (CPT) selection complete Assessment & Plan Assessment & Plan (1) Painful arc syndrome of right shoulder: Code(s): M75.101 - Unspecified rotator cuff tear or rupture of right shoulder, not specified as traumatic Category: Medical Plan Ms. Mccoy is a 39-year-old right hand dominant female who presents in the office today, as a new patient, for an evaluation of right shoulder pain. The patient presented to the ED on 08/23/24 status post heard a pop in the right shoulder on 08/20/24, when reaching back in her car for an object. X-rays of the right shoulder were obtained. Informed the patient that she will need an MRI for further evaluation. She was recommended to limit overhead movements and heavy lifting. She was advised to apply ice for relief. While in the office today, the patient confirms hearing a pop in her right shoulder when reaching behind the seat in the car. She reports her pain starts from her right clavicle and radiates down to the right shoulder. She reports her pain is worse with ROM and she also experiences weakness. The patient was offered a cortisone injection in the right shoulder with 80 mg of Depo-Medrol. The patient was explained the risks, benefits, and alternatives to receiving this injection. After receiving consent for the injection, the patient had the procedure done while in the office today. The patient tolerated the procedure well with no complication. The patient was referred to physical therapy today. Follow-up will be in 6 weeks, or sooner if needed. X-rays of the right shoulder which were obtained while in the office today and were reviewed by me, Joanne Sykes PA-C, revealed acute fracture dislocation. X-rays of the right shoulder, obtained on 08/24/24, revealed: No fracture or dislocation. No significant degenerative disease. Orders: Orders PT Evaluation and Treatment 09/11/24 M75.101 - Unspecified rotator cuff tear or rupture of right shoulder, not specified as traumatic Patient Instructions: Scribed by Tiffani Claudio, medical billing manager, for Joanne Sykes PA-C on 09/11/24 at 2:15 pm EST. Coding Level of Care Code New Pt Level 4 (07677) Diagnoses Painful arc syndrome of right shoulder M75.101 CPT Codes Coding - 05569 Large joint: 05277 - Large joint ([id number])
[2024-09-11 14:22] VITALS: BMI 27.6
== END 2024-09-11 15:11 | disposition home or self-care (01) ==
PROVIDERS: PCP Internal Medicine; Visit Provider Physician Assistant
DX: M75.41 Impingement syndrome of right shoulder (principal)
CPT/HCPCS: 20610; 99204

== ENCOUNTER → 2024-09-11 14:02 | Outpatient (BNVA) | payer OTHER, SELFPAY | PROVIDERS: PCP Internal Medicine; Visit Provider Physician Assistant | DX: M75.101 Unspecified rotator cuff tear or rupture of right shoulder, not specified as traumatic (principal) | CPT/HCPCS: 20610; J1010; J2003 ==

== ENCOUNTER 2024-09-25 16:13 | Outpatient (AMB) | payer OTHER, SELFPAY ==
[2024-09-25 16:14] VITALS: BP 118/70; PULSE 90; O2SAT 98; BMI 28.9
--- NOTE | 2024-09-25 16:14 | MHC.PC.OV ---
Vital Signs 09/25/24 16:14 Height 5 ft 3 in Weight 163 lb BMI 28.9 BP 118/70 Blood Pressure Location Lt brachial Position Sitting Pulse 90 Pulse Source Pulse Oximeter Pulse Oximetry (%) 98 Oxygen Delivery Method Room Air Intake Visit Reasons: PE Allergies No Known Allergies Allergy (Verified 09/25/24 16:14) Medication List - Last Reconciled 09/25/24 by Elisa Rhodes MD [id number] 250-250-65 mg (Excedrin Migraine) 2 tabs PO DAILY PRN Tobacco use date assessed: 01/27/24 Dental Screening Dental Screen Date: 09/25/24 Did you have a dental visit in the last 12 months?: Yes Did you have a dental problem in the last 6 months where you did not have access to dental care?: No Was dental information given to patient?: Patient has dentist HPI PE HPI Details 39-year-old overweight female with a history of iron deficiency anemia menorrhagia coming in for physical exam last seen in August for for right shoulder pain. Patient's mammogram is due when and Pap smear is due. 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 Patient had injection done and referred for physical therapy. For the anemia patient saw Hematology-Oncology in June 11 patient received 3 units of packed RBC not suggestive of acute GI blood loss iron dextran 11/16/2023 and for Venofer infusion iron. L ear rash, dizziness, occ sob on waking up, so patient has been having right shoulder pain after injections did not give relief and physical therapy has had more pain on that right shoulder. Now comes in with limited elevation. As for the left ear discharge with scaly rash with erythema, has been noticing this problem for couple of months and has had urgent care visits with oral antibiotics as well as eardrops with no relief prompting for consultation also. [facility] Medical History Annual physical exam Surgical History History of carpal tunnel release History of tubal ligation Neck pain with history of cervical spinal surgery History of section Family History Father No problems noted. 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 1. Little interest or pleasure in doing things: not at all 2. Feeling down, depressed, or hopeless: not at all 3. Trouble falling or staying asleep, or sleeping too much: not at all 4. Feeling tired or having little energy: not at all 5. Poor appetite or overeating: not at all 6. Feeling bad about yourself - or that you are a failure or have let yourself or your family down: not at all 7. Trouble concentrating on things, such as reading the newspaper or watching television: not at all 8. Moving or speaking so slowly that other people could have noticed. Or the opposite - being so fidgety or restless that you have been moving around a lot more than usual: not at all 9. Thoughts that you would be better off or of hurting yourself in some way: not at all Total score: 0 Source: Developed by Drs. Parker Schmitz, Ashleigh Villalta, Michael House and colleagues, with an educational ismael from [employer]. Thrive Questionnaire Date Thrive assessed: 09/18/24 I am a: Patient What is your living situation today?: I have a steady place to live Within the past 12 months, did the food you bought not last and you didn't have the money to get more?: Never true Within the past 12 months, did you worry whether your food would run out before you got money to buy more?: Never true Do you have trouble paying for medicines?: No Do you have trouble getting transportation to medical appointments?: No Do you have trouble paying your heating and electricity bill?: No Do you have trouble taking care of your child, family member or friend?: No Do you have trouble with day-to-day activities such as bathing, preparing meals, shopping, managing finances, etc.?: No Are you currently unemployed and looking for a job?: No Are you interested in more education?: No Please select the resources that you would like help with: None Currently or been in a relationship where the following occur: No concerns reported THRIVE Score: 0 AUDIT C Alcohol Use Questionnaire (AUDIT-C) 1. How often do you have a drink containing alcohol?: Never 3. How often do you have six or more drinks on one occasion?: Never Total Score: 0 SUKHDEV-7 AMB Questionnaire SUKHDEV-7 Date SUKHDEV - 7 assessed: 01/27/24 Feeling nervous, anxious, or on edge: 0 = Not at all Not being able to stop or control worryin = Not at all Worrying too much about different things: 0 = Not at all Trouble relaxin = Not at all Being so restless that it is hard to sit still: 0 = Not at all Becoming easily annoyed or irritable: 0 = Not at all Feeling afraid as if something awful might happen: 0 = Not at all Total SUKHDEV-7 score (0-4 normal; 5-9 mild; 10-14 moderate; 15-21 severe): 0 Source: Developed by Drs. Parker Schmitz, Ashleigh Villalta, Michael House and colleagues, with an educational ismael from [employer]. Review of Systems Const Denies poor appetite and Denies weakness Eyes Denies no additional complaints ENT Reports Normal hearing present, Denies dizziness, Denies nasal congestion, Denies tinnitus and Denies sore throat Card Denies chest pain, Denies syncope, Denies rapid heart rate and Denies dyspnea Resp Denies cough and Denies dyspnea GI Denies change in stool character, Reports constipation, Denies diarrhea, Denies nausea and Denies vomiting Denies urinary frequency, Denies difficulty voiding and Denies dysuria Neuro Reports Normal hearing present, Denies confusion, Denies dizziness, Denies syncope and Denies weakness Psych Denies confusion Physical exam (Primary Care) Vital Signs: Last Vital Signs Pulse 90 09/25/24 16:14 BP 118/70 09/25/24 16:14 Pulse Ox 98 09/25/24 16:14 Oxygen Delivery Method Room Air 09/25/24 16:14 BMI result Body Mass Index 28.9 Tobacco/Smoking Status: Tobacco use Status Tobacco use date assessed 01/27/24 09/25/24 16:15 Patient Tobacco Use Status Never used Tobacco 09/25/24 16:15 e-Cigarette/Vaping Use Never Used 09/25/24 16:15 PHQ-9: PHQ-9 Score PHQ-9: Total score 0 09/25/24 16:15 Thrive Assessment: Date of Thrive Assessment Date Thrive assessed 09/18/24 09/25/24 16:15 Currently or been in a relationship where the following occur: No concerns reported Const Other: Medial left eye mild erythema/conjunctival hemorrhage General: No confusion Orientation/consciousness: No confusion HENMT Other: left ear is normal with TM intact but right ear with scaly rash and erythematous tympanic wall with the yellowish pus inside TM is not visualized Head: Yes normocephalic Outer ear/TM images: 1. Scaly rash noted on the lower ear wall with erythema on the tympanic wall with pus inside TM not visualized left ear Face and sinus: Yes normal facial exam Mouth: moist mucous membranes Throat: Yes tonsils normal Eyes Conjunctivae: conjunctivae normal Pupils: Equal, round and reactive pupils present and Pupil accommodation reflex normal Direct Ophthalmoscopy: normal light reflex Neck Neck: No lymphadenopathy Thyroid: Thyroid normal Chest Chest palpation & inspection: normal inspection of the chest Resp Effort & Inspection: normal respiratory effort and no audible wheezes Auscultation: clear to auscultation bilaterally, no crackles, no wheezes and lung sounds not diminished Cardio Rate: regular rate Rhythm: regular rhythm Peripheral pulses: radial pulses present and dorsalis pedis present GI Palpation (GI): no masses Auscultation: normal bowel sounds and normoactive bowel sounds Rectal Exam - Female: deferred Skin General skin exam: no rashes or lesions noted Rashes: no rashes Neuro General: No confusion Cranial nerves: Yes Equal, round and reactive pupils present and Yes Normal hearing present Cognition (Neuro): normal cognition Gait exam (Neuro): Normal gait present Motor exam (neuro): 5/5 motor strength present throughout Deep tendon reflexes (DTR's): Right brachioradialis reflex intensity grade: 2+, Left brachioradialis reflex intensity grade: 2+, Right patellar reflex intensity grade: 2+ and Left patellar reflex intensity grade: 2+ Extrem Other: Right shoulder with limited elevation to 90 degrees no swelling and redness General: No edema Coding Level of Care Code Est Pt Level 3 (70009) Est Pt Prev Care 40-64y(72557) Diagnoses Annual physical exam Z00.00 Iron deficiency anemia due to chronic blood loss D50.0 Iron deficiency anemia type: chronic blood loss Menorrhagia with irregular cycle N92.1 Menorrhagia type: with irregular cycle 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 (2) Iron deficiency anemia: Comment: however EGD colo typically needs to be done with in 1 year-will check with MD for advisement-if insurance will approve may go forward RN reviewed with insurance company for authorization patient does not need to repeat EGD and colonoscopy at this time. We will go straight to capsule endoscopy. Patient was notified Code(s): D50.9 - Iron deficiency anemia, unspecified Category: Medical Qualifiers: Iron deficiency anemia type: chronic blood loss Qualified Code(s): D50.0 - Iron deficiency anemia secondary to blood loss (chronic) Plan: Patient follows up with Hematology-Oncology and has had iron infusion. Patient also follows up with gynecology for menorrhagia. (3) Menorrhagia: Code(s): N92.0 - Excessive and frequent menstruation with regular cycle Category: Medical Qualifiers: Menorrhagia type: with irregular cycle Qualified Code(s): N92.1 - Excessive and frequent menstruation with irregular cycle Plan: Patient follows up with Gynecology, was advised IUD but declined so still having menorrhagia (4) Painful arc syndrome of right shoulder: Code(s): M75.101 - Unspecified rotator cuff tear or rupture of right shoulder, not specified as traumatic Category: Medical Plan: Patient has seen ortho has had injections and physical therapy. (5) Otitis media: Code(s): H66.90 - Otitis media, unspecified, unspecified ear Category: Medical Qualifiers: Otitis media type: suppurative Chronicity: chronic Laterality: left Suppurative otitis media location: unspecified location Qualified Code(s): H66.3X2 - Other chronic suppurative otitis media, left ear Plan: Patient is given Bactrim with Acetasol. Urgent referral to ear nose and throat Orders: Orders Comprehensive Met. Panel Today D50.0 - Iron deficiency anemia secondary to blood loss (chronic) Ferritin Today D50.0 - Iron deficiency anemia secondary to blood loss (chronic) Reticulocyte Count Today D50.0 - Iron deficiency anemia secondary to blood loss (chronic) Vitamin B12 and Folate Today D50.0 - Iron deficiency anemia secondary to blood loss (chronic) Vitamin D 25-OH Total Today D50.0 - Iron deficiency anemia secondary to blood loss (chronic) Thyroid Stimulating Hormone Today D50.0 - Iron deficiency anemia secondary to blood loss (chronic) MR shoulder RT wo con Today M75.101 - Unspecified rotator cuff tear or rupture of right shoulder, not specified as traumatic Complete Blood Count Auto Diff Today D50.0 - Iron deficiency anemia secondary to blood loss (chronic) IRON PROFILE Today D50.0 - Iron deficiency anemia secondary to blood loss (chronic) Free T4 (Free Thyroxine) Today D50.0 - Iron deficiency anemia secondary to blood loss (chronic) Referrals Ear/Nose/Throat Referral H66.90 - Otitis media, unspecified, unspecified ear Medications: New sulfamethoxazole-trimethoprim 800-160 mg (Bactrim DS) 1 tab PO BID 14 tabs 0RF H66.90 - Otitis media, unspecified, unspecified ear hydrocortisone-acetic acid 1-2 % 4 drps otic (ear) left TID 10 mL 0RF H66.90 - Otitis media, unspecified, unspecified ear
== END 2024-09-27 14:49 | disposition home or self-care (01) ==
LOC: HO.HMCH 16:14
PROVIDERS: PCP Internal Medicine; Visit Provider Internal Medicine
DX: Z00.00 Encounter for general adult medical examination without abnormal findings (principal); D50.0 Iron deficiency anemia secondary to blood loss (chronic); N92.1 Excessive and frequent menstruation with irregular cycle; M75.101 Unspecified rotator cuff tear or rupture of right shoulder, not specified as traumatic; H66.3X2 Other chronic suppurative otitis media, left ear

== ENCOUNTER → 2024-09-25 16:13 | Outpatient (BNVA) | payer OTHER, SELFPAY | PROVIDERS: PCP Internal Medicine; Visit Provider Internal Medicine ==

== ENCOUNTER 2024-10-06 08:25 | Outpatient (REF) | payer OTHER, SELFPAY ==
[2024-10-06 08:45] LABS: MANUAL DIFF FLAG NO
[2024-10-06 09:52] LABS: Basophils Percent Auto 0.3 % (0-2); Eosinophils Absolute Auto 0.1 X10*3/uL (0.0-0.4); Eosinophils Percent Auto 2.3 % (0-4); Hematocrit 31.6 % (37.0-47.0); Imm Gran Abs Auto 0.01 X10*3/uL (0.00-0.03); Imm Gran Pct Auto 0.3 % (0.0-0.4); Lymphocytes Absolute Auto 1.1 X10*3/uL (1.2-4.9); Lymphocytes Percent Auto 28.4 % (20-40); Mean Corpuscular HGB Conc 31.6 g/dl (31.0-35.0); Mean Corpuscular Hemoglobin 27.9 pg (27.0-33.0); Mean Platelet Volume 10.3 fL (9.4-12.3); Monocytes Absolute Auto 0.4 X10*3/uL (0.1-1.2); Monocytes Percent Auto 9.8 % (2-11); Neutrophils Absolute Auto 2.3 x10*3/uL (2.0-8.3); Neutrophils Percent Auto 58.9 % (45-73); Platelet Count 267 X10*3/uL (160-400); Red Blood Count 3.59 X10*6/uL (4.20-5.50); Red Cell Distribution Width 12.3 % (11.0-16.0); Reticulocyte Percent 1.3 % (0.5-1.8); Reticulocytes Absolute 0.045 X10*6/uL (0.026-0.095); White Blood Count 3.9 X10*3/uL (4.8-10.8)
[2024-10-06 10:31] LABS: Alanine Aminotransferase 14 U/L (0-31); Alkaline Phosphatase 69 U/L (39-117); Anion Gap 12 (12-20); Aspartate Amino Transferase 18 U/L (5-31); Bilirubin Total 0.6 mg/dL (0.0-1.0); Blood Urea Nitrogen 13 mg/dL (9-16); Calcium 9.6 mg/dL (8.4-10.2); Carbon Dioxide 24 mmol/L (22-29); Chloride 109 mmol/L (96-108); Estimated Glomerular Filt Rate > 60; Glucose Random 91 mg/dL (60-115); Iron 27 mcg/dL (30-160); Percent Iron Saturation 7 % (15-50); Potassium 4.1 mmol/L (3.3-5.1); Sodium 141 mmol/L (135-145); Total Iron Binding Capacity 399 mcg/dL (228-428); Total Protein 7.3 g/dL (6.5-8.0); Unsaturated Iron Binding 372 ug/dL
[2024-10-06 10:36] LABS: Ferritin 3 ng/mL (10-250); Free T4 (Free Thyroxine) 1.01 ng/dL (0.71-1.85); Thyroid Stimulating Hormone 0.45 uIU/mL (0.32-4.0); Vitamin D 25-OH Total 15.1 ng/mL (>30)
[2024-10-06 10:44] LABS: Folate 10.6 ng/mL (> or = 4.0); Vitamin B12 443 pg/mL (200-900)
== END 2024-10-06 08:26 | disposition home or self-care (01) ==
LOC: HO.LAB 08:25
PROVIDERS: PCP Internal Medicine; Visit Provider Internal Medicine
DX: D50.0 Iron deficiency anemia secondary to blood loss (chronic) (principal)
CPT/HCPCS: 36415; 80053; 82306; 82607; 82728; 82746; 83540; 84439; 84443; 85025; 85045

== ENCOUNTER 2024-10-10 15:49 | Outpatient (RCR) | payer OTHER, SELFPAY ==
--- NOTE | 2024-10-10 17:25 | MHC.PT.EP ---
[facility] [place] Office [place] Office [place] Office [address] [phone] F: [phone] F: [phone] F: [phone] F: [phone] Physical Therapy Plan of Care Date of Evaluation: 10/10/24 Date of Surgery: Diagnosis: Unspecified rotator cuff tear of RIGHT shoulder, painful arc syndrome (MD Dx) RS Assessment: Marlene is a 39 y.o. female who is referred to PT by Joanne Sykes PA-C, with Dx of unspecified rotator cuff tear of RIGHT shoulder, painful arc syndrome. Pt presents with acute pain and increased muscle guarding and am unable to perform complete assessment, will continue to assess and differentially diagnose in subsequent visits once pain is better controlled. I am unable to rule in or rule out RTC tear due to her presentation. Patient impairments include pain in R shoulder with radicular sxs to lateral elbow, limited ROM R shoulder, weakness R UE. 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 She may be a good candidate for MRI due to her presentation. Patient will benefit from skilled PT to address aforementioned impairments and functional limitations to meet established goals. Frequency and Duration: The patient will be seen 2x/week for 4 weeks Short Term Goals: 2 weeks Patient demonstrates consistency and independence with HEP to self manage symptoms. 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 Patient presents with increased AROM R shoulder ER 50 degrees to be able to don/doff clothes for upper body without difficulty. Treatment Plan: Modalities to reduce pain, spasms and effusion. Manual therapy to restore motion and function. Therapeutic exercise to improve strength and flexibility. Neuromuscular re-education for posture and balance. Therapeutic activities to return to functional activities of daily living. Electronically signed by: uDsty Chu, PT, DPT Please sign and return to therapist. Thank you for your referral.
--- NOTE | 2024-12-28 11:50 | MHC.PT.DC ---
[facility] [place] Office [place] Office [place] Office [address] [phone] F: [phone] F: [phone] F: [phone] F: [phone] Physical Therapy Discharge Report Diagnosis: Unspecified rotator cuff tear of RIGHT shoulder, painful arc syndrome ( Dx) RS Date of Surgery: Date of Evaluation: 10/10/24 Date of Discharge: 12/28/24 Treatments to Date: 1 Cancellations to Date: 8 No Shows to Date: 0 Discharge Status: Visit Non-compliance Discharge Summary: Marlene only attended PT evaluation and then cancelled all remaining booked PT visits. Unable to determine effectiveness of PT interventions on patient condition due to no FUP visits after evaluation. She was given a home exercise program. Electronically signed by: Dusty Chu, PT, DPT Please sign and return to therapist. Thank you for your referral.
== END 2024-12-28 11:51 | disposition home or self-care (01) ==
LOC: HO.PT 15:49
PROVIDERS: PCP Internal Medicine; Visit Provider Physician Assistant
DX: M25.511 Pain in right shoulder (principal)
CPT/HCPCS: 97014; 97110; 97161

== ENCOUNTER → 2024-10-24 10:21 | Outpatient (BNV) | payer OTHER, SELFPAY | PROVIDERS: PCP Internal Medicine; Visit Provider Internal Medicine | DX: Z80.3 Family history of malignant neoplasm of breast (principal); Z91.89 Other specified personal risk factors, not elsewhere classified | CPT/HCPCS: 77049 ==

== ENCOUNTER 2024-10-24 10:22 | Outpatient (REF) | payer OTHER, SELFPAY ==
[2024-10-24] MEDS: gadobutroL 7.5 ML VIAL IVPUSH (11:27)
== END 2024-10-24 10:23 | disposition home or self-care (01) ==
LOC: HO.MRI 10:22
PROVIDERS: PCP Internal Medicine; Visit Provider Obstetrics & Gynecology
DX: Z12.39 Encounter for other screening for malignant neoplasm of breast (principal); Z80.3 Family history of malignant neoplasm of breast
CPT/HCPCS: 77049; A9585

== ENCOUNTER 2025-01-17 09:00 | Outpatient (AMB) | payer OTHER, SELFPAY ==
[2025-01-17 09:02] VITALS: BP 112/64; PULSE 90; O2SAT 99; BMI 28.9
--- NOTE | 2025-01-17 09:02 | MHC.PC.OV ---
Vital Signs 01/17/25 09:02 Height 5 ft 3 in Weight 163 lb BMI 28.9 BP 112/64 Blood Pressure Location Rt brachial Position Sitting Pulse 90 Pulse Source Pulse Oximeter Pulse Oximetry (%) 99 Oxygen Delivery Method Room Air Intake Visit Reasons: Left Ear Pain Intake Note: Pt is here for left ear pain for the past [employer] Telephone Clerk Required: No Accompanied by: Self / Same As Patient Allergies No Known Allergies Allergy (Verified 01/17/25 09:18) Medication List - Last Reconciled 01/17/25 by CADE Noland lrpowkc-zszlkgcdiinsa-epvfhsed 250-250-65 mg (Excedrin Migraine) 2 tabs PO DAILY PRN hydrocortisone-acetic acid 1-2 % 4 drps otic (ear) left TID sulfamethoxazole-trimethoprim 800-160 mg (Bactrim DS) 1 tab PO BID Tobacco use date assessed: 01/17/25 Dental Screening Dental Screen Date: 01/17/25 Did you have a dental visit in the last 12 months?: No Did you have a dental problem in the last 6 months where you did not have access to dental care?: No Was dental information given to patient?: No HPI Left Ear Pain HPI Details The patient 40 year old female presenting with left ear pain Reports that she was seen by Dr. Rhodes on 09/25/24 and he was given given bactrim DS and hydrocortisone-acetic acid 1-2% drops without any relief reports that she was seeing by ENT and was told the rash was problable her psoriasis Reports that her ear feels blocked and hurts whenever it is touched Reports that she can not sleep on that side reports that she saw Dr. Polk (derm) in the past and was given hydrocortizones cream She denies ringing in the ears reports that she could hear the water shift and it relief the blockage a little in her left ear Then it goes back to being blocked shortly after There is a rash consistent with fungal that the patient left ear. There is also small amount of whitish appearing drainage in the patient left ear canal. The patient was started on an antifungal ear drops and was referred back to ENT for further evaluation [facility] Medical History Annual physical exam Surgical History History of carpal tunnel release History of tubal ligation Neck pain with history of cervical spinal surgery History of section Family History Father No problems noted. 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 1. Little interest or pleasure in doing things: not at all 2. Feeling down, depressed, or hopeless: not at all 3. Trouble falling or staying asleep, or sleeping too much: not at all 4. Feeling tired or having little energy: not at all 5. Poor appetite or overeating: not at all 6. Feeling bad about yourself - or that you are a failure or have let yourself or your family down: not at all 7. Trouble concentrating on things, such as reading the newspaper or watching television: not at all 8. Moving or speaking so slowly that other people could have noticed. Or the opposite - being so fidgety or restless that you have been moving around a lot more than usual: not at all 9. Thoughts that you would be better off or of hurting yourself in some way: not at all Total score: 0 Depression Screening Interpretation: Negative Depression Screening Done: Yes 82087 - PHQ-9 Billing: Yes Source: Developed by Drs. Parker Schmitz, Ashleigh Villalta, Michael House and colleagues, with an educational ismael from [employer]. Thrive Questionnaire Date Thrive assessed: 01/17/25 I am a: Patient What is your living situation today?: I have a steady place to live Within the past 12 months, did the food you bought not last and you didn't have the money to get more?: Never true Within the past 12 months, did you worry whether your food would run out before you got money to buy more?: Never true Do you have trouble paying for medicines?: No Do you have trouble getting transportation to medical appointments?: No Do you have trouble paying your heating and electricity bill?: No Do you have trouble taking care of your child, family member or friend?: No Do you have trouble with day-to-day activities such as bathing, preparing meals, shopping, managing finances, etc.?: No Are you currently unemployed and looking for a job?: No Are you interested in more education?: No Please select the resources that you would like help with: None Currently or been in a relationship where the following occur: No concerns reported THRIVE Score: 0 AUDIT C Alcohol Use Questionnaire (AUDIT-C) 1. How often do you have a drink containing alcohol?: Never 3. How often do you have six or more drinks on one occasion?: Never Total Score: 0 SUKHDEV-7 AMB Questionnaire SUKHDEV-7 Date SUKHDEV - 7 assessed: 01/17/25 Feeling nervous, anxious, or on edge: 0 = Not at all Not being able to stop or control worryin = Not at all Worrying too much about different things: 0 = Not at all Trouble relaxin = Not at all Being so restless that it is hard to sit still: 0 = Not at all Becoming easily annoyed or irritable: 0 = Not at all Feeling afraid as if something awful might happen: 0 = Not at all Total SUKHDEV-7 score (0-4 normal; 5-9 mild; 10-14 moderate; 15-21 severe): 0 Source: Developed by Drs. Parker Schmitz, Ashleigh Villalta, Michael House and colleagues, with an educational ismael from [employer]. SUKHDEV-7 Assessment Billing SUKHDEV-7 Assessment Tool: SUKHDEV-7 Assessment 00510 Review of Systems Const Details: Denies chills, Denies fatigue, Denies fever(s), Denies headache(s) and Denies weakness HEENT Denies change in vision, Denies dizziness, Denies headache(s), Denies hearing loss, Denies nasal congestion, Denies sinus pain, Denies sinus pressure and Denies sore throat + left ear rash,+ pain to palpation at left tragus, + left ear feeling blocked Card Denies chest pain, Denies lightheadedness, Denies dyspnea and Denies other (palpitations) Resp Denies cough, Denies dyspnea and Denies wheezing GI Denies abdominal pain, Denies melena, Denies hematochezia, Denies change in bowel habits, Denies dyspepsia and Denies nausea Denies hematuria and Denies dysuria Musc Denies abnormal gait, Denies myalgias, Denies arthralgias, Denies numbness and Denies tingling Skin/Breast Denies rash, Denies unusual bruising and Denies wounds Neuro Denies abnormal gait, Denies dizziness, Denies headache(s), Denies memory loss, Denies numbness, Denies Sensory deficit (Neuro), Denies tingling and Denies weakness Psych Denies anxiety, Denies depression and Denies memory loss Endo Denies cold intolerance, Denies fatigue, Denies heat intolerance, Denies polydipsia and Denies polyuria Celestino/Lymph Denies easy bleeding and Denies easy bruising Aller/Immun Denies wheezing Physical exam (Primary Care) Vital Signs: Last Vital Signs Pulse 90 01/17/25 09:02 BP 112/64 01/17/25 09:02 Pulse Ox 99 01/17/25 09:02 Oxygen Delivery Method Room Air 01/17/25 09:02 BMI result Body Mass Index 28.9 Tobacco/Smoking Status: Tobacco use Status Tobacco use date assessed 01/17/25 01/17/25 09:04 Patient Tobacco Use Status Never used Tobacco 01/17/25 09:07 e-Cigarette/Vaping Use Never Used 01/17/25 09:04 PHQ-9: PHQ-9 Score PHQ-9: Total score 0 01/17/25 13:49 Depression Screening Interpretation: Negative Thrive Assessment: Date of Thrive Assessment Date Thrive assessed 01/17/25 01/17/25 09:04 Currently or been in a relationship where the following occur: No concerns reported Const Other: General: no acute distress, well developed, alert and awake Nutritional Appearance: well nourished Orientation/consciousness: patient oriented x3 HENMT Head: Yes normocephalic and Yes atraumatic Ears: + left ear rash (consistent with fungal), pain with palpation and tragus region, whitish drainage in left ear canal General nose exam: Normal external nose present and Normal nares present Mouth: Normal oral and palatal mucosa present and moist mucous membranes Teeth and gingiva: dentition normal Throat: Yes oropharynx normal Eyes Pupils: Equal, round and reactive pupils present and Pupil accommodation reflex normal EOM: EOMs intact bilaterally Neck Neck: Yes normal visual inspection, Yes no lymphadenopathy and Yes trachea midline Thyroid: Thyroid normal Carotids: no bruits Lymphatic: no lymphadenopathy noted Chest Chest palpation & inspection: normal inspection of the chest Resp Effort & Inspection: normal respiratory effort Auscultation: clear to auscultation bilaterally Cardio Rate: regular rate Rhythm: regular rhythm Heart sounds: S1 normal heart sound present, S2 normal heart sound present, no gallops, no murmurs and no rubs GI Palpation (GI): No Abdominal aortic bruit present, Soft to palpation, nontender, No hepatosplenomegaly present and No Rebound tenderness present Auscultation: normal bowel sounds General: Yes no CVA tenderness Back/Spine/Pelvis Back: no CVA tenderness Cervical Spine: cervical ROM normal and No Cervical spine tenderness Thoracic/Lumbar Spine: No lumbar tenderness Skin General: warm and dry. Normal skin color. Normal skin turgor Lesions: no lesions Rashes: no rashes Trauma: no lacerations or abrasions Wounds: no wounds Nails: normal Neuro General: patient oriented x3, gait normal Cranial nerves: Yes Equal, round and reactive pupils present Cognition (Neuro): normal cognition Gait exam (Neuro): Normal gait present Extrem General: Yes normal to inspection, No edema and No calf tenderness Psych Appearance: grossly normal Affect: normal affect Attitude: cooperative Thought process: Normal thought process present Coding Level of Care Code Tele New Pt Level 3 (81657) Diagnoses Other infective otitis externa of left ear, unspecified chronicity H60.392 Otitis externa type: other infective Chronicity: unspecified Laterality: left Otalgia of left ear H92.02 Additional Codes SUKHDEV-7 Assessment Billing - SUKHDEV-7 Assessment Tool: SUKHDEV-7 Assessment 95010 ([id number]) PHQ-9 - 14170 - PHQ-9 Billing: Yes ([id number]) Time Spent (min) 33 Assessment & Plan Assessment & Plan (1) Otitis externa: Code(s): H60.90 - Unspecified otitis externa, unspecified ear Category: Medical Qualifiers: Otitis externa type: other infective Chronicity: unspecified Laterality: left Qualified Code(s): H60.392 - Other infective otitis externa, left ear Plan: Patient has a rash the left ear that is consistent with fungal infection Clotrimazole 1% solution topical was ordered A short course of prednisone 20 mg x3 days was ordered for swelling in the left ear Patient was referred back to ENT to further evaluate as soon as possible (2) Otalgia of left ear: Code(s): H92.02 - Otalgia, left ear Category: Medical Plan: May use Tylenol OTC for pain control Orders: Referrals Ear/Nose/Throat Referral H60.392 - Other infective otitis externa, left ear, H92.02 - Otalgia, left ear Medications: New clotrimazole 1% 3 drops TIDX 14 days 1 appl topical TID 60 mL 0RF prednisone 20 mg PO DAILY 3 days 3 tabs 0RF
== END 2025-01-17 09:52 | disposition home or self-care (01) ==
PROVIDERS: PCP Internal Medicine
DX: H60.392 Other infective otitis externa, left ear (principal); H92.02 Otalgia, left ear

== ENCOUNTER → 2025-01-17 09:00 | Outpatient (BNVA) | payer OTHER, SELFPAY | PROVIDERS: PCP Internal Medicine | DX: H60.392 Other infective otitis externa, left ear (principal); H92.02 Otalgia, left ear | CPT/HCPCS: 96127 ==